=== PATIENT | female | born 1950 | race American Indian/Alaskan Native ===

== ENCOUNTER → 2017-09-01 | Outpatient (CLI) | payer MEDICARE ==
[~2017-09-01] MED LIST: ALBU90OI61 INH; ALPR.5 PO; ALPR.5CR; ASCO500 PO; BP MEDS; CARV25 PO; CRUTCH3 USE; CYCL10 PO; Chondroitin Su250 MG PO; D3 DOTS2000 UNIT PO; DOCU100 PO; FISH1000 PO; GLUC500 PO; IBUP400 PO; IRON325 MG PO; LIDO5TP TOP; MELO7.5 PO; Mobic15 MG; NAPR220; NAPR220 PO; OMEPRAZOLE MAGN20 MG PO; OXYACE5T PO; OXYC5; OXYC5 PO; PANT20 PO; POTASSIUM GLUC500 MG PO; RXHYDACE PO; Sucralfate1 GM PO; TOCO400 PO; TRAM50 PO; VITAMIN B125000 MCG PO; Vitamin C1000 M1 PO; WARF4 PO
[2017-09-01 13:26] LABS: Bilirubin, Urine Neg (Neg); Blood, Urine Neg (Neg); Glucose Qualitative, Urine Neg (Neg); Ketones, Urine Neg (Neg); Leukocyte Esterase, Urine 3+ (Neg); Nitrite, Urine Neg (Neg); Protein, Urine 1+ (Neg); Urobilinogen, Urine NORM (Normal); pH, Urine 6.5 (5.0-8.0)
[2017-09-01 13:49] LABS: Appearance, Urine Clear (Clear); Bacteria Few /hpf; Color, Urine Yellow (P-Yellow); Red Blood Cells, Urine 0-2 /hpf (0-2); Squamous Epithelial Cells Rare /hpf (Few)
== END ==
LOC: LAB SHORT 11:00 → LAB 11:00
PROVIDERS: Orthopaedic Surgery
DX: Z01.812 Encounter for preprocedural laboratory examination (principal)
CPT/HCPCS: 81001

== ENCOUNTER 2017-09-17 13:39 | Inpatient (IN) | payer MEDICARE ==
[~2017-09-17] VITALS: Ht 152.4 cm; Wt 59.0 kg
[2017-09-23 04:39] LABS: BASOPHILS ABSOLUTE AUTO 0.01 K/mm3 (0.00-0.23); BASOPHILS PERCENT AUTO 0 % (0-2); EOSINOPHILS PERCENT AUTO 0 % (0-6); Hematocrit 25.6 % (33.0-51.0); Hemoglobin 8.2 g/dL (11.5-16.0); IMMATURE GRAN ABSOLUTE AUTO 0.04 K/mm3 (0.00-0.10); IMMATURE GRAN PERCENT AUTO 0 % (0-1); LYMPHOCYTES ABSOLUTE AUTO 0.58 K/mm3 (0.84-5.20); LYMPHOCYTES PERCENT AUTO 6 % (21-46); MONOCYTES PERCENT AUTO 13 % (4-13); Mean Corpuscular HGB 25.8 pg (26.0-34.0); Mean Corpuscular Volume 81 fL (80-100); Mean Platelet Volume 9.3 fL (9.1-12.4); NEUTROPHILS ABSOLUTE AUTO 7.74 K/mm3 (1.96-9.15); NEUTROPHILS PERCENT AUTO 81 % (41-73); Platelet Count 270 K/mm3 (150-400); RDW Coefficient Variation 20.8 % (11.7-14.2); RDW Standard Deviation 60.8 fL (35.1-46.3); Red Blood Cell Count 3.18 M/mm3 (3.80-5.20); White Blood Cell Count 9.57 K/mm3 (4.00-11.30)
[2017-09-23 04:55] LABS: Anion Gap 10 mmol/L (6-16); Blood Urea Nitrogen 16 mg/dL (8-24); Bun/Creatinine Ratio 23.2 (12.0-20.0); CO2, Blood 23 mmol/L (21-32); Calcium, Blood 8.3 mg/dL (8.5-10.1); Chloride, Blood 104 mmol/L (98-108); Creatinine, Blood 0.69 mg/dL (0.40-1.00); Glomerular Filtration Rate >60 (60-); Glucose, Blood 128 mg/dL (70-99); Potassium, Blood 3.5 mmol/L (3.5-5.5); Sodium, Blood 137 mmol/L (136-145)
[2017-09-23] MEDS ORDERED: OXYC5 PO (13:06)
== END 2017-09-23 15:10 | disposition home or self-care (01) | DRG 483 ==
LOC: SURS 09-22 09:30 → PRE IP 09-22 11:00 → SURS 09-22 15:41
PROVIDERS: Orthopaedic Surgery
PROC: 0RRK0J6 Replacement of Left Shoulder Joint with Synthetic Substitute, Humeral Surface, Open Approach (ICD-10-PCS; principal; 2017-09-22 11:00)
DX: M19.012 Primary osteoarthritis, left shoulder (principal); I10 Essential (primary) hypertension; F41.9 Anxiety disorder, unspecified
CPT/HCPCS: 36415; 73030; 80048; 85025; 86850; 86900; 86901; 97110; 97162; 97165; 97530; 97535; C1776; G8978; G8979; G8980; G8987; G8988; G8989; J0171; J0690; J0735; J1885; J2250; J2405; J2765; J2795; J3010; J7120

== ENCOUNTER 2021-02-01 18:53 | Inpatient (IN) | payer OTHER ==
[~2021-02-01] VITALS: Ht 152.4 cm; Wt 49.9 kg
[2021-02-01] MEDS ORDERED: OMEP20ER (19:05)
[2021-02-01] MEDS ORDERED: ALPRAZOLAM0.5 M1 PO (19:05)
[2021-02-01] MEDS ORDERED: IBU800 M1 PO (19:05)
[2021-02-01 20:04] LABS: BASOPHILS ABSOLUTE AUTO 0.02 K/mm3 (0.00-0.23); BASOPHILS PERCENT AUTO 0 % (0-2); Hematocrit 32.8 % (33.0-51.0); LYMPHOCYTES ABSOLUTE AUTO 0.58 K/mm3 (0.84-5.20); LYMPHOCYTES PERCENT AUTO 3 % (21-46); MONOCYTES ABSOLUTE AUTO 1.23 K/mm3 (0.16-1.47); MONOCYTES PERCENT AUTO 7 % (4-13); Mean Corpuscular Volume 89 fL (80-100); Mean Platelet Volume 9.8 fL (9.1-12.4); Platelet Count 308 K/mm3 (150-400); RDW Coefficient Variation 11.1 % (11.7-14.2); RDW Standard Deviation 36.1 fL (35.1-46.3); Red Blood Cell Count 3.68 M/mm3 (3.80-5.20); White Blood Cell Count 18.93 K/mm3 (4.00-11.30)
[2021-02-01 20:11] LABS: Alanine Aminotransfer (ALT/SGP 57 U/L (12-78); Albumin, Blood 2.9 g/dL (3.4-5.0); Albumin/Globulin Ratio 0.9 (0.8-1.8); Alk Phos 126 U/L (50-136); Anion Gap 18 mmol/L (6-16); Aspartate Aminotrans (AST/SGOT 76 U/L (12-37); Bilirubin, Total 1.1 mg/dL (0.1-1.0); Blood Urea Nitrogen 7 mg/dL (8-24); Bun/Creatinine Ratio 10.4 (12.0-20.0); CO2, Blood 21 mmol/L (21-32); Calcium, Blood 8.5 mg/dL (8.5-10.1); Chloride, Blood 69 mmol/L (98-108); Creatinine, Blood 0.67 mg/dL (0.40-1.00); Globulin, Blood 3.4 g/dL (2.2-4.0); Glomerular Filtration Rate >60 (60-); Glucose, Blood 179 mg/dL (70-99); Potassium, Blood 3.4 mmol/L (3.5-5.5); Sodium, Blood 108 mmol/L (136-145); Total Protein, Blood 6.3 g/dL (6.4-8.2)
[2021-02-01 20:38] LABS: EOSINOPHILS PERCENT AUTO 2 % (0-6); IMMATURE GRAN ABSOLUTE AUTO 0.23 K/mm3 (0.00-0.10); IMMATURE GRAN PERCENT AUTO 1 % (0-1); Mean Corpuscular HGB 35.3 pg (26.0-34.0); Mean Corpuscular HGB Conc 39.6 g/dL (31.5-36.5); NEUTROPHILS ABSOLUTE AUTO 16.57 K/mm3 (1.96-9.15); NEUTROPHILS PERCENT AUTO 88 % (41-73)
[2021-02-01 21:02] LABS: Magnesium, Blood 1.4 mg/dL (1.6-2.4); Phosphorus, Blood 1.5 mg/dL (2.5-4.9)
[2021-02-02 06:26] LABS: Magnesium, Blood 2.3 mg/dL (1.6-2.4)
[2021-02-02 06:40] LABS: Anion Gap 16 mmol/L (6-16); Blood Urea Nitrogen 4 mg/dL (8-24); CO2, Blood 19 mmol/L (21-32); Calcium, Blood 7.9 mg/dL (8.5-10.1); Chloride, Blood 83 mmol/L (98-108); Creatinine, Blood 0.66 mg/dL (0.40-1.00); Glomerular Filtration Rate >60 (60-); Glucose, Blood 126 mg/dL (70-99); Potassium, Blood 2.6 mmol/L (3.5-5.5); Sodium, Blood 118 mmol/L (136-145)
--- NOTE | 2021-02-02 17:56 | NUR ---
SHIFT SUMMARY PT HAS BEEN RESTING IN BED, NAPPING OFF AND ON. PT HAS VOICED NO C/O PAIN, C/O DISCOMFORT WITH IV INFUSION. PT WAS EDUCATED ON MEDICATION AND EXPECTED SENSATION DURING INFUSION. THIS RN SLOWED INFUSION AND PROVIDED DISTRACTION TO REDUCE THE DISCOMFORT. VSS, NO ACUTE CHANGES TO CURRENT CONDITION.
[2021-02-02 23:11] LABS: Influenza A, PCR NEGATIVE (NEGATIVE); Influenza B, PCR NEGATIVE (NEGATIVE); Resp Syncytial Virus, PCR NEGATIVE (NEGATIVE); SARS-Cov-2 (COVID-19) PCR, MMC NEGATIVE (NEGATIVE)
[2021-02-03 04:54] LABS: Anion Gap 8 mmol/L (6-16); Blood Urea Nitrogen 6 mg/dL (8-24); Bun/Creatinine Ratio 10.6 (12.0-20.0); CO2, Blood 24 mmol/L (21-32); Calcium, Blood 8.6 mg/dL (8.5-10.1); Chloride, Blood 95 mmol/L (98-108); Creatinine, Blood 0.57 mg/dL (0.40-1.00); Glomerular Filtration Rate >60 (60-); Glucose, Blood 104 mg/dL (70-99); Magnesium, Blood 2.1 mg/dL (1.6-2.4); Phosphorus, Blood 1.8 mg/dL (2.5-4.9); Potassium, Blood 3.6 mmol/L (3.5-5.5); Sodium, Blood 127 mmol/L (136-145)
--- NOTE | 2021-02-03 06:17 | NUR ---
SHIFT SUMMARY PT ALERT AND ORIENTED X4. C/O SNEEZING AND CONGESTION. PT SWABBED, COVID, RSV, FLU NEGATIVE. SODIUM IMPROVED FROM 118 YESTERDAY AM TO 127 TODAY AM. HR 60 SR, BP STABLE. ON RA SATS OVER 95%, LUNG SOUNDS CLEAR. AMBULATING TO BEDSIDE COMMODE WITH X1 SBA. CIWA-. IN BED SLEEPING WITH CALL ALARM AT SIDE. WILL CONTINUE TO MONITOR UNTLI REPORT GIVEN.
--- NOTE | 2021-02-03 17:44 | NUR ---
SHIFT SUMMARY PT HAS BEEN RESTING AND NAPPING IN BED FOR MOST OF THE DAY. PT HAS DENIED ANY C/O PAIN/DISCOMFORT. PT HAS MADE STATEMENTS ABOUT LOOKING FORWARD TO STARTING PT/OT AND HAS HOPE FOR IMPROVING CURRENT LIMITATIONS. WHEN ASKED ABOUT LIVING ARRANGEMENT, PT WOULD DEFLECT AND AVOID THE CONVERSATION. VSS, NO CHANGES TO CURRENT CONDITION.
[2021-02-04 04:12] LABS: Anion Gap 9 mmol/L (6-16); Blood Urea Nitrogen 7 mg/dL (8-24); Bun/Creatinine Ratio 12.8 (12.0-20.0); CO2, Blood 22 mmol/L (21-32); Calcium, Blood 8.5 mg/dL (8.5-10.1); Chloride, Blood 98 mmol/L (98-108); Creatinine, Blood 0.55 mg/dL (0.40-1.00); Glomerular Filtration Rate >60 (60-); Glucose, Blood 136 mg/dL (70-99); Potassium, Blood 3.2 mmol/L (3.5-5.5); Sodium, Blood 129 mmol/L (136-145)
--- NOTE | 2021-02-04 06:34 | NUR ---
SHIFT SUMMARY PT ALERT AND ORIENTED X4. FREQUENTLY PROFESSOR OF LANGUAGES LIGHT FOR BATHROOM. PLEASANT AND COOPERATIVE. LUNG SOUNDS CLEAR, SATS OVER 99% ON RA. BP STABLE. LEFT ARM BRUISE AND RIGHT A/C IV REMOVED. IN BED WATCHING TV WITH CALL ALARM AT SIDE. WILL CONTINUE TO MONITOR UNTIL REPORT GIVEN.
[2021-02-04 06:52] LABS: Osmolality, Serum 261 mos/KG (275-300)
[2021-02-04] MEDS ORDERED: Acetaminophen325 M1 PO (09:31)
--- NOTE | 2021-02-04 12:25 | NUR ---
DISCHARGE: PT HAS BEEN PROVIDED WITH DC PAPERWORK AND INSTRUCTIONS, PT DENIES QUESTIONS. IV ACCESS DC'd WNL. PT ASSISTED TO WAITING RIDE VIA W/C.
== END 2021-02-04 12:13 | disposition home health service (06) | DRG 392 ==
LOC: ER 18:53 → PCU 18:54
PROVIDERS: Emergency Medicine; Internal Medicine; ADMIT Internal Medicine
DX: A08.4 Viral intestinal infection, unspecified (principal); E87.1 Hypo-osmolality and hyponatremia; Z20.822 Contact with and (suspected) exposure to COVID-19; K29.20 Alcoholic gastritis without bleeding; F10.20 Alcohol dependence, uncomplicated; T39.315A Adverse effect of propionic acid derivatives, initial encounter; I10 Essential (primary) hypertension; E87.8 Other disorders of electrolyte and fluid balance, not elsewhere classified; E83.39 Other disorders of phosphorus metabolism; G89.29 Other chronic pain; E83.42 Hypomagnesemia; E87.6 Hypokalemia; D72.829 Elevated white blood cell count, unspecified; Z88.2 Allergy status to sulfonamides; Z88.8 Allergy status to other drugs, medicaments and biological substances; Z79.899 Other long term (current) drug therapy; Z79.1 Long term (current) use of non-steroidal anti-inflammatories (NSAID)
CPT/HCPCS: 0241U; 36415; 80048; 80053; 82947; 83690; 83735; 83930; 83935; 84100; 84295; 84300; 85025; 93005; 93010; 96365; 96375; 97161; 97530; 99285-25; A9270; J1650; J2405; J3411; J3475; J3480; J7030; J7042; J7060

== ENCOUNTER 2021-03-17 22:14 | Inpatient (IN) | payer OTHER ==
[~2021-03-17] VITALS: Ht 152.4 cm; Wt 44.7 kg
[~2021-03-17 22:14] MED LIST changes: +ALPRAZOLAM0.5 M1 PO; +Acetaminophen325 M1 PO; +IBU800 M1 PO; +OMEP20ER
[2021-03-17 22:47] LABS: BASOPHILS ABSOLUTE AUTO 0.03 K/mm3 (0.00-0.23); BASOPHILS PERCENT AUTO 0 % (0-2); EOSINOPHILS PERCENT AUTO 0 % (0-6); Hematocrit 26.4 % (33.0-51.0); IMMATURE GRAN ABSOLUTE AUTO 0.06 K/mm3 (0.00-0.10); IMMATURE GRAN PERCENT AUTO 1 % (0-1); LYMPHOCYTES ABSOLUTE AUTO 1.13 K/mm3 (0.84-5.20); LYMPHOCYTES PERCENT AUTO 9 % (21-46); MONOCYTES ABSOLUTE AUTO 0.87 K/mm3 (0.16-1.47); MONOCYTES PERCENT AUTO 7 % (4-13); Mean Corpuscular Volume 92 fL (80-100); Mean Platelet Volume 10.6 fL (9.1-12.4); NEUTROPHILS ABSOLUTE AUTO 10.15 K/mm3 (1.96-9.15); NEUTROPHILS PERCENT AUTO 83 % (41-73); Platelet Count 413 K/mm3 (150-400); RDW Coefficient Variation 15.7 % (11.7-14.2); RDW Standard Deviation 50.7 fL (35.1-46.3); Red Blood Cell Count 2.88 M/mm3 (3.80-5.20); White Blood Cell Count 12.24 K/mm3 (4.00-11.30)
[2021-03-17 22:48] LABS: Hemoglobin 10.2 g/dL (11.5-16.0); Mean Corpuscular HGB 35.4 pg (26.0-34.0)
[2021-03-17 23:08] LABS: CPK Creatine Kinase 248 U/L (26-193); Creatine Kinase MB 16.4 ng/mL (0.0-3.6); Creatine Kinase MB Index 6.6 (0.0-4.0); Ethanol (Alcohol), Blood, Med <3 mg/dL
[2021-03-17 23:13] LABS: Alanine Aminotransfer (ALT/SGP 130 U/L (12-78); Albumin, Blood 2.3 g/dL (3.4-5.0); Albumin/Globulin Ratio 0.7 (0.8-1.8); Alk Phos 169 U/L (50-136); Anion Gap 16 mmol/L (6-16); Aspartate Aminotrans (AST/SGOT 87 U/L (12-37); Bilirubin, Total 3.4 mg/dL (0.1-1.0); Blood Urea Nitrogen 13 mg/dL (8-24); Bun/Creatinine Ratio 9.3 (12.0-20.0); CO2, Blood 16 mmol/L (21-32); Calcium, Blood 8.5 mg/dL (8.5-10.1); Chloride, Blood 111 mmol/L (98-108); Globulin, Blood 3.2 g/dL (2.2-4.0); Glomerular Filtration Rate 37 (60-); Glucose, Blood 153 mg/dL (70-99); Potassium, Blood 1.8 mmol/L (3.5-5.5); Sodium, Blood 143 mmol/L (136-145); Total Protein, Blood 5.5 g/dL (6.4-8.2)
[2021-03-17 23:19] LABS: International Normalized Ratio 2.25; Prothrombin Time Results 22.4 Sec (9.7-11.5)
[2021-03-17 23:24] LABS: Mean Corpuscular HGB Conc 37.3 g/dL (31.5-36.5)
[2021-03-17 23:41] LABS: Source, Urine Clean Catch
[2021-03-17 23:45] LABS: Blood, Urine 5+ (Neg); Glucose Qualitative, Urine Neg (Neg); Ketones, Urine Neg (Neg); Leukocyte Esterase, Urine 1+ (Neg); Nitrite, Urine Neg (Neg); Protein, Urine 2+ (Neg); Specific Gravity, Urine 1.015 (1.003-1.022); Urobilinogen, Urine 1+ (Normal)
[2021-03-17 23:52] LABS: Appearance, Urine Hazy (Clear); Bilirubin, Urine 2+ (Neg); Color, Urine Amber (P-Yellow)
[2021-03-17 23:53] LABS: Amorphous Light (0-Heavy); Bacteria Few /hpf; Granular Casts 0-2 /lpf (0); Red Blood Cells, Urine TNTC /hpf (0-2); Squamous Epithelial Cells Rare /hpf (Few); White Blood Cells, Urine 0-2 /hpf (0-5)
[2021-03-17 23:56] LABS: U Amphetamine Screen Not Detected; U Barbituate Screen Not Detected; U Benzodiazapine Screen Not Detected; U Buprenorphine Screen Not Detected; U Cannabinoids Screen Not Detected; U Cocaine Screen Not Detected; U Methadone Screen Not Detected; U Methamphetamine Screen Not Detected; U Opiates Screen Not Detected; U Oxycodone Screen Not Detected; U Phencyclidine Screen Not Detected; U Propoxyphene Screen Not Detected
[2021-03-18 00:27] LABS: Influenza A, PCR NEGATIVE (NEGATIVE); Influenza B, PCR NEGATIVE (NEGATIVE); Resp Syncytial Virus, PCR NEGATIVE (NEGATIVE); SARS-Cov-2 (COVID-19) PCR, MMC NEGATIVE (NEGATIVE)
--- NOTE | 2021-03-18 06:17 | NUR ---
CARE ASSUMPTION: THIS RN RECEIVED REPORT FROM ED RN. PATIENT TRANSPORTED BY GURNEY AND WAS SLID FROM ED GURNEY TO PCU BED. PATIENT SLURRED OF SPEECH, COMPLAINED WE WERE "POKING" HER AND EVERYTHING WE DID HURT. KCL RUNNING TO RAC IV. PATIENT STATES R IV SITE WAS BEGINNING TO HURT. RAC IV SITE FLUSHED WELL, INFUSING, NO REDNESS OR SIGNS OF INFILTRATION NOTED. SECOND IV SITE WAS STARTED BACKUP. PATIENT STATES SHE IS COLD AND WAS BROUGHT BLANKETS FROM WARMER.
--- NOTE | 2021-03-18 06:21 | NUR ---
SHIFT SUMMARY: PATIENT'S VS WNL, DENIES PAIN TO ABDOMEN, DENIES CHEST PAIN, SOB, AND N/V. PATIENT COMPLAINS MOVING HURTS BUT WANTS TO WALK TO TOILET. BED ALARM IS ON PATIENT CONFUSED AND UNSTABLE ON FEET. PATIENT ASKED THIS RN TO "CARRY [ME] TO THE TOILET" ON TWO OCCASIONS. THIS RN REMINDED HER SHE IS UNSTABLE ON HER FEET AND IT IS UNSAFE FOR THIS RN TO CARRY PATIENTS TO THE TOILET. PATIENT TOLD THIS RN OF ALL THE TIMES SHE HAS FALLEN AND HOW SHE "FALLS A LOT" DURING 0400 VS. POTASSIUM WAS 1.9 UPON ADMITTANCE AND LACTIC HAS TRENDED DOWN FROM 4.0 TO 2.4. PATIENT'S SISTER SPOKE WITH MANAGER ENVIRONMENTAL AND PLANS TO FLY FROM [place] TO [place] THIS AM, RENT A CAR, AND PREPARE PATIENT'S HOME FOR DISCHARGE. SISTER WAS EDUCATED ON VISITOR POLICY. SISTER VERBALIZED UNDERSTANDING AND STATED SHE IS CONCERNED FOR HER SISTER'S SAFTEY AND PRIORITY IN COMING IS TO "GET THE HOUSE READY." SHE WILL CALL FOR AN UPDATE. PATIENT RESTING IN BED WITH CALL LIGHT IN REACH. WILL CONTINUE TO MONITOR AND REPORT TO ONCOMING RN.
--- NOTE | 2021-03-18 08:12 | NUR ---
Pt is oriented x3, but has been saying very random comments which indicates she is still confused. Pt had NPO orders, I contacted MD to see if I could do BSS and advance diet. Pt passes BSS and breakfast was ordered. VSS on RA.
[2021-03-18 11:21] LABS: BASOPHILS ABSOLUTE AUTO 0.03 K/mm3 (0.00-0.23); BASOPHILS PERCENT AUTO 0 % (0-2); EOSINOPHILS ABSOLUTE AUTO 0.02 K/mm3 (0.00-0.68); EOSINOPHILS PERCENT AUTO 0 % (0-6); Hematocrit 24.9 % (33.0-51.0); Hemoglobin 9.3 g/dL (11.5-16.0); IMMATURE GRAN ABSOLUTE AUTO 0.04 K/mm3 (0.00-0.10); IMMATURE GRAN PERCENT AUTO 0 % (0-1); LYMPHOCYTES ABSOLUTE AUTO 1.31 K/mm3 (0.84-5.20); LYMPHOCYTES PERCENT AUTO 13 % (21-46); MONOCYTES ABSOLUTE AUTO 0.67 K/mm3 (0.16-1.47); MONOCYTES PERCENT AUTO 7 % (4-13); Mean Corpuscular HGB 34.8 pg (26.0-34.0); Mean Corpuscular HGB Conc 37.3 g/dL (31.5-36.5); Mean Corpuscular Volume 93 fL (80-100); Mean Platelet Volume 10.9 fL (9.1-12.4); NEUTROPHILS ABSOLUTE AUTO 8.25 K/mm3 (1.96-9.15); NEUTROPHILS PERCENT AUTO 80 % (41-73); Platelet Count 395 K/mm3 (150-400); RDW Coefficient Variation 15.9 % (11.7-14.2); RDW Standard Deviation 51.8 fL (35.1-46.3); Red Blood Cell Count 2.67 M/mm3 (3.80-5.20); White Blood Cell Count 10.32 K/mm3 (4.00-11.30)
[2021-03-18 12:29] LABS: Albumin, Blood 2.6 g/dL (3.4-5.0); Albumin/Globulin Ratio 0.9 (0.8-1.8); Bilirubin, Total 4.1 mg/dL (0.1-1.0); Calcium, Blood 8.5 mg/dL (8.5-10.1); Creatinine, Blood 1.1 mg/dL (0.40-1.00); Globulin, Blood 2.8 g/dL (2.2-4.0); Potassium, Blood 2.1 mmol/L (3.5-5.5); Total Protein, Blood 5.4 g/dL (6.4-8.2)
--- NOTE | 2021-03-18 15:51 | NUR ---
Pts daughters updated over the phone.
--- NOTE | 2021-03-18 15:51 | NUR ---
Shift note: Pt is alert and oriented to self, time and place, disoriented to situation. Pts thought process and some of her comments are indicating she is still a bit confused. I have noticed an improvement of mentation and orientation throughout the day. PO lactulose given per orders. K critically low 2.1, K+ replaced IV. Currently infusing the second bag. It is a slow infusion with each bag running over 2 hrs. Pt will get a total of 4 bags and 80meq. Lab order in place for tonight after infusions. Mg was also given 2G. Pt up to BSC multiple times today. Multiple BMs liquid/loose. Pt passed BSS this AM and has been eating a little bit at each meal. Pt was asking for snacks in afternoon. Pt denies pain in her abdomen, abdomen is pretty soft nontender, mildly distended. Scabs seen on bottom and legs. Tele: NSR. VSS on RA. Fluids given per orders 1.5L NS. 2 PIVs, both flushing well. Pt denies drinking since January before admission to hospital for fall.
--- NOTE | 2021-03-18 18:27 | NUR ---
Pt reported trouble swallowing some of the solid food with dinner, changed diet to [facility] soft. Pt did ok with thin liquids. Pt wears dentures and does have them in place. SURVEYOR HELPER order placed.
[2021-03-18 20:13] LABS: Bun/Creatinine Ratio 9.1 (12.0-20.0); Calcium, Blood 8.5 mg/dL (8.5-10.1); Creatinine, Blood 0.99 mg/dL (0.40-1.00); Potassium, Blood 2.5 mmol/L (3.5-5.5)
[2021-03-19 05:37] LABS: BASOPHILS ABSOLUTE AUTO 0.02 K/mm3 (0.00-0.23); BASOPHILS PERCENT AUTO 0 % (0-2); EOSINOPHILS ABSOLUTE AUTO 0.04 K/mm3 (0.00-0.68); EOSINOPHILS PERCENT AUTO 1 % (0-6); Hematocrit 25.1 % (33.0-51.0); Hemoglobin 9.2 g/dL (11.5-16.0); IMMATURE GRAN ABSOLUTE AUTO 0.04 K/mm3 (0.00-0.10); IMMATURE GRAN PERCENT AUTO 1 % (0-1); LYMPHOCYTES ABSOLUTE AUTO 1.37 K/mm3 (0.84-5.20); LYMPHOCYTES PERCENT AUTO 16 % (21-46); MONOCYTES ABSOLUTE AUTO 0.75 K/mm3 (0.16-1.47); MONOCYTES PERCENT AUTO 9 % (4-13); Mean Corpuscular HGB 35.2 pg (26.0-34.0); Mean Corpuscular HGB Conc 36.7 g/dL (31.5-36.5); Mean Corpuscular Volume 96 fL (80-100); NEUTROPHILS ABSOLUTE AUTO 6.22 K/mm3 (1.96-9.15); NEUTROPHILS PERCENT AUTO 74 % (41-73); Platelet Count 386 K/mm3 (150-400); RDW Coefficient Variation 17.1 % (11.7-14.2); Red Blood Cell Count 2.61 M/mm3 (3.80-5.20); White Blood Cell Count 8.44 K/mm3 (4.00-11.30)
[2021-03-19 05:53] LABS: Anion Gap 8 mmol/L (6-16); Blood Urea Nitrogen 8 mg/dL (8-24); Bun/Creatinine Ratio 8.7 (12.0-20.0); CO2, Blood 18 mmol/L (21-32); Calcium, Blood 8.6 mg/dL (8.5-10.1); Chloride, Blood 126 mmol/L (98-108); Creatinine, Blood 0.92 mg/dL (0.40-1.00); Glomerular Filtration Rate >60 (60-); Glucose, Blood 119 mg/dL (70-99); Potassium, Blood 3.2 mmol/L (3.5-5.5); Sodium, Blood 152 mmol/L (136-145)
--- NOTE | 2021-03-19 05:57 | NUR ---
shift summary pt rested well through the night. alert and oriented x2. bed alarm on. cooperative with plan of care. sats >95% on room air. tele reads nsr. sba to bsc, voiding and having small bm's. lactulose scheduled. potassium improving significantly. ammonia seems to be improving based on mentation. vss. no c/o pain. call light within reach, bed in lowest position. will continue to monitor.
--- NOTE | 2021-03-19 07:51 | NUR ---
PO POTASSIUM GIVEN IN APPLESAUCE DUE TO LARGE SIZE AND TROUBLE SWALLOWING. DR. Bernstein CALLED AND SAID TO WAIT FOR MG LEVEL TO COME BACK BEFORE GIVING IV MAG.
--- NOTE | 2021-03-19 07:59 | NUR ---
Pt daughter Sondra is wanting an update from the doctor. I notifed Dr. Bernstein of this.
--- NOTE | 2021-03-19 08:35 | NUR ---
Mg came back high, did not give per Dr. Villa verbal order at bedside. Dr. Villa also wanted an additional 20meq IV of potassium, order placed.
[2021-03-19] MEDS ORDERED: LACT10SY PO (12:29)
[2021-03-19] MEDS ORDERED: CEROVITE PO (12:35)
[2021-03-19] MEDS ORDERED: POTCHL20ER PO (12:36)
--- NOTE | 2021-03-19 13:04 | NUR ---
Pt is alert and oriented, but will repeat multiple things and make comments that are not related to topic. Not sure if pt has baseline cognitive decline, but pt is forgetful and thought process is a bit off. Tele: NSR 70s. Pt has had multiple BMs today, 0900 lactulose given, but 1300 dose held due to >4 BMs. K replaced PO 40meQ and IV 20meq. VSS on RA. Pt worked with PT, ambulated in [place]opez with FWW. Pt sister (Sondra) was wanting an update and had a few questions for MD, notified Dr. Bernstein and was told she would call family member. Pt also worked with [employer] TECHNICAL OFFICER, mechanical soft diet as well as thins ok. Pills in applesauce.
[2021-03-19 13:27] LABS: Anion Gap 10 mmol/L (6-16); Blood Urea Nitrogen 7 mg/dL (8-24); Bun/Creatinine Ratio 7.9 (12.0-20.0); CO2, Blood 14 mmol/L (21-32); Calcium, Blood 8.5 mg/dL (8.5-10.1); Chloride, Blood 122 mmol/L (98-108); Creatinine, Blood 0.89 mg/dL (0.40-1.00); Glomerular Filtration Rate >60 (60-); Glucose, Blood 155 mg/dL (70-99); Potassium, Blood 3.8 mmol/L (3.5-5.5); Sodium, Blood 146 mmol/L (136-145)
--- NOTE | 2021-03-19 13:38 | NUR ---
Attempted to call Sondra, pt sister several times to see what time she can pick her up, goes straight to voicemail. I will continue to try and reach her.
--- NOTE | 2021-03-19 13:45 | NUR ---
Met pt, sitting in a chair and watching T.V. Pt. reports to be doing fine but she expressed fear of dying and cried for the brother whom she said few months ago. Encouraged pt. and gave spirital suppot and prayers.
--- NOTE | 2021-03-19 13:46 | NUR ---
Spoke with pt sister Sondra, she will be able to pick her up at 1500. PT has already completed eval on pt and OT is pretty busy today and likely would not be able to get eval in. Pt has home health orders for PT/OT and help in home. Pt being d/c home with Home health and her sister will be at her house until Thursday.
--- NOTE | 2021-03-19 15:31 | NUR ---
Received referral from nurse rn wound care (Salma Coronel) on 03/19/2021. Patient is to discharge 03/19/2021 with orders for home health and elected [facility]. Patient is known to agency/greeting card writer due to having recently been on service with [facility] from through 03/07/2021. At that time patient was on service for PT, OT, and SN services. Gathered all supporting documentation for referral (face sheet, face to face, med list, H&P, and most recent PT assessment) and sent to [facility] for review. No further interventions required. Louisa Butler Referral Liaison
[2021-03-20] MEDS ORDERED: GABA300 PO (08:52)
== END 2021-03-19 15:20 | disposition home health service (06) | DRG 433 ==
LOC: ER 22:14 → PCU 03-18 00:25
PROVIDERS: Emergency Medicine; Family Medicine; ADMIT Internal Medicine
DX: K70.40 Alcoholic hepatic failure without coma (principal); E87.2 Acidosis; N17.9 Acute kidney failure, unspecified; D68.9 Coagulation defect, unspecified; Z20.822 Contact with and (suspected) exposure to COVID-19; E87.6 Hypokalemia; R19.7 Diarrhea, unspecified; K70.30 Alcoholic cirrhosis of liver without ascites; E86.0 Dehydration; I10 Essential (primary) hypertension; Z71.41 Alcohol abuse counseling and surveillance of alcoholic; Z88.2 Allergy status to sulfonamides; Z90.49 Acquired absence of other specified parts of digestive tract; Z90.710 Acquired absence of both cervix and uterus; Z79.899 Other long term (current) drug therapy; Z90.89 Acquired absence of other organs; Z98.890 Other specified postprocedural states
CPT/HCPCS: 0241U; 36415; 70450; 71045; 72125; 80048; 80053; 81001; 82140; 82550; 82553; 83605; 83735; 84484; 85025; 85610; 87086; 92610; 93005; 93010; 96365; 97116; 97162; 97530; 99285-25; A9270; G0480; J2405; J3475; J3480; J7030; J7050; P9046

== ENCOUNTER 2021-04-03 08:29 | Inpatient (IN) | payer OTHER ==
[~2021-04-03] VITALS: Ht 152.4 cm; Wt 46.9 kg
[~2021-04-03 08:29] MED LIST changes: +CEROVITE PO; +Enulose10 GM/15 M PO; +GABA300 PO; -OMEP20ER; +POTCHL20ER PO; +Prilosec Otc20 MG PO
[2021-04-03] MEDS ORDERED: FUROSEMIDE20 MG PO (08:48)
[2021-04-03 09:02] LABS: BASOPHILS ABSOLUTE AUTO 0.06 K/mm3 (0.00-0.23); BASOPHILS PERCENT AUTO 0 % (0-2); EOSINOPHILS PERCENT AUTO 0 % (0-6); Hematocrit 29.8 % (33.0-51.0); Hemoglobin 9.3 g/dL (11.5-16.0); IMMATURE GRAN ABSOLUTE AUTO 0.17 K/mm3 (0.00-0.10); IMMATURE GRAN PERCENT AUTO 1 % (0-1); LYMPHOCYTES ABSOLUTE AUTO 0.81 K/mm3 (0.84-5.20); LYMPHOCYTES PERCENT AUTO 4 % (21-46); MONOCYTES ABSOLUTE AUTO 1.28 K/mm3 (0.16-1.47); MONOCYTES PERCENT AUTO 6 % (4-13); Mean Corpuscular HGB 35.9 pg (26.0-34.0); Mean Corpuscular HGB Conc 31.2 g/dL (31.5-36.5); Mean Corpuscular Volume 115 fL (80-100); Mean Platelet Volume 10.3 fL (9.1-12.4); NEUTROPHILS ABSOLUTE AUTO 19.78 K/mm3 (1.96-9.15); NEUTROPHILS PERCENT AUTO 89 % (41-73); Platelet Count 459 K/mm3 (150-400); RDW Coefficient Variation 20.4 % (11.7-14.2); RDW Standard Deviation 84.4 fL (35.1-46.3); Red Blood Cell Count 2.59 M/mm3 (3.80-5.20)
[2021-04-03 09:11] LABS: PCO2 Arterial 12.7 mmHg (35-45); PO2 Arterial 129 mmHg (80-100); pH Blood Arterial 7.13 (7.35-7.45)
[2021-04-03 09:24] LABS: Albumin, Blood 2.5 g/dL (3.4-5.0); Albumin/Globulin Ratio 0.6 (0.8-1.8); Bilirubin, Total 1.2 mg/dL (0.1-1.0); Bun/Creatinine Ratio 10.7 (12.0-20.0); Calcium, Blood 9.3 mg/dL (8.5-10.1); Creatinine, Blood 1.68 mg/dL (0.40-1.00); Globulin, Blood 4.1 g/dL (2.2-4.0); Potassium, Blood 4.2 mmol/L (3.5-5.5); Total Protein, Blood 6.6 g/dL (6.4-8.2)
[2021-04-03 10:35] LABS: Source, Urine Foley catheter
[2021-04-03 10:46] LABS: Creatine Kinase MB 15.6 ng/mL (0.0-3.6); Creatine Kinase MB Index 3.6 (0.0-4.0)
[2021-04-03 11:10] LABS: Appearance, Urine Bloody (Clear); Bilirubin, Urine Neg (Neg); Blood, Urine 5+ (Neg); Color, Urine Red (P-Yellow); Glucose Qualitative, Urine Neg (Neg); Ketones, Urine 2+ (Neg); Leukocyte Esterase, Urine 1+ (Neg); Nitrite, Urine Neg (Neg); Protein, Urine 3+ (Neg); Urobilinogen, Urine NORM (Normal)
[2021-04-03 11:26] LABS: Red Blood Cells, Urine TNTC /hpf (0-2)
[2021-04-03 11:27] LABS: Bacteria Not Seen /hpf; Squamous Epithelial Cells Not Seen /hpf (Few)
[2021-04-03 12:18] LABS: International Normalized Ratio 1.81; Prothrombin Time Results 18.3 Sec (9.7-11.5)
[2021-04-03 14:14] LABS: Influenza A, PCR NEGATIVE (NEGATIVE); Influenza B, PCR NEGATIVE (NEGATIVE); Resp Syncytial Virus, PCR NEGATIVE (NEGATIVE); SARS-Cov-2 (COVID-19) PCR, MMC NEGATIVE (NEGATIVE)
[2021-04-03 15:44] LABS: Salicylate <1.7 mg/dL (2.8-20.0)
[2021-04-03 15:58] LABS: Acetaminophen, Random 2.8 ug/mL (10.0-30.0)
[2021-04-03 16:05] LABS: Bun/Creatinine Ratio 11.2 (12.0-20.0); Calcium, Blood 8.5 mg/dL (8.5-10.1); Creatinine, Blood 1.43 mg/dL (0.40-1.00)
[2021-04-03 16:09] LABS: Alanine Aminotransfer (ALT/SGP 48 U/L (12-78); Albumin, Blood 1.9 g/dL (3.4-5.0); Albumin/Globulin Ratio 0.6 (0.8-1.8); Alk Phos 104 U/L (50-136); Anion Gap 19 mmol/L (6-16); Aspartate Aminotrans (AST/SGOT 66 U/L (12-37); Beta-hydroxybutyrate 28.5 mg/dL (0.2-2.8); Bilirubin, Total 0.9 mg/dL (0.1-1.0); Blood Urea Nitrogen 16 mg/dL (8-24); Bun/Creatinine Ratio 11.3 (12.0-20.0); CO2, Blood 9 mmol/L (21-32); Calcium, Blood 8.2 mg/dL (8.5-10.1); Chloride, Blood 126 mmol/L (98-108); Creatinine, Blood 1.42 mg/dL (0.40-1.00); Globulin, Blood 3.3 g/dL (2.2-4.0); Glomerular Filtration Rate 37 (60-); Glucose, Blood 157 mg/dL (70-99); Sodium, Blood 154 mmol/L (136-145); Total Protein, Blood 5.2 g/dL (6.4-8.2)
[2021-04-03 16:50] LABS: U Amphetamine Screen Not Detected; U Barbituate Screen Not Detected; U Benzodiazapine Screen Not Detected; U Buprenorphine Screen Not Detected; U Cannabinoids Screen Not Detected; U Cocaine Screen Not Detected; U Methadone Screen Not Detected; U Methamphetamine Screen Not Detected; U Opiates Screen Not Detected; U Oxycodone Screen Not Detected; U Phencyclidine Screen Not Detected; U Propoxyphene Screen Not Detected
[2021-04-03 16:51] LABS: Adenovirus F 40/41 Not Detected (NOT DETECT); Astrovirus Not Detected (NOT DETECT); Campylobacter Sp Not Detected (NOT DETECT); Cryptosporidium Not Detected (NOT DETECT); Cyclospora Cayetanensis Not Detected (NOT DETECT); E. Coli O157 Not Detected (NOT DETECT); Entamoeba Histolytica Not Detected (NOT DETECT); Enteroaggregative E. coli-EAEC Not Detected (NOT DETECT); Enteropathogenic E. coli-EPEC Not Detected (NOT DETECT); Enterotoxigenic E. coli-ETEC Not Detected (NOT DETECT); Giardia Lamblia Not Detected (NOT DETECT); Norovirus GI/GII Not Detected (NOT DETECT); Plesiomonas Shigelloides Not Detected (NOT DETECT); Rotavirus A Not Detected (NOT DETECT); Salmonella Sp Not Detected (NOT DETECT); Sapovirus Not Detected (NOT DETECT); Shiga Toxin-prod E. coli-STEC Not Detected (NOT DETECT); Shigella/Enteroin E. coli-EIEC Not Detected (NOT DETECT); Vibrio Cholerae Not Detected (NOT DETECT); Vibrio Sp Not Detected (NOT DETECT); Yersinia Enterocolitica Not Detected (NOT DETECT)
[2021-04-03 17:10] LABS: Osmolality, Serum 326 mos/KG (275-300)
--- NOTE | 2021-04-03 18:37 | NUR ---
SUMMARY PT ON ROOM AIR, VITALS STABLE AT THIS TIME. SEE LABS FOR RESULTS. NEURO: PT VERY LETHARGIC, STRONGER COMMANDS ON LEFT SIDE SIDE COMPARED TO RT, PUPILS EQUAL AND REACTIVE. PT HAS ALL BRAIN STEM REFLEXES IN PLACE, INTERMITTENT MOANS AND HAS SAID 'I HEAR YOU' TO RN DURING ASSESSMENT. RESP: ON RM AIR, RR 14, LUNGS CLEAR THROUGHOUT, DIMINISHED IN BASES. NO CRACKLES PRESENT AT THIS TIME. CV: NSR HR IN THE 90'S. +2 PITTING EDEMA AND PANCHO BLE. STRONG PULSES IN RADIAL, FAINT BLE. POTASSIUM LAB 3, AWARE. GI: FMS IN PLACE, TWO LACTULOSE ENEMAS COMPLETED TODAY. MERRITT PASTE OUTPUT. FMS BAG CHANGED. HEMORRHOIDS AROUND ANUS. SKIN: DRY, POOR TURGOR, DRY MEMBRANES. LEFT FLANK PURPLE BRUISE, SMALL LEFT KNEE WOUND ON OLD INCISION SITE, BLE SCRATCHES/EXCORIATION, RIGHT ELBOW TRAUMATIC PRESSURE WOUND- CLOVER IN : MCCORMACK IN PLACE, BLOODY OUTPUT. 150ML TOTAL OUTPUT FROM [id number], DR. AGRAWAL AWARE. 150MEQ BICARB DRIP AT 100, D5 AT 75, LR BOLUS AND POTASSIUM REPLACEMENT STARTED. PLACE. HEEL AND SACRUM FOAM IN PLACE.
--- NOTE | 2021-04-03 20:00 | NUR ---
ASSUMPTION OF CARE RECEIVED REPORT AT 1900. PT ATTEMPTS TO OPEN EYES TO NAME, BUT LETHARGIC AND SOMNOLENT. MOANS OUT OFTEN, ESPECIALLY WHEN TOUCHED. UNABLE TO FOLLOW COMMANDS AND NO PURPOSEFUL MOVEMENT. RESISTANT TO REPOSITIONING. ON ROOM AIR, SPO2 >92%, LUNGS ARE CLEAR AND DIMINISHED. SHE IS TAKING DEEP BREATHS AND SNORING ON EXPIRATION. HR IS SR, RATE 80-90'S, ECG ON MONITOR SHOWS INTERFERANCE. BP STABLE. EDEMA 2+ PITTING TO BLE. MCCORMACK PATENT, DRAINING REDDENED URINE WITH SEDIMENT. RECTAL TUBE PATENT, DRAINING LIQUID YELLOW/BROWN STOOL. SKIN IS OVERALL C/D/I, SEE ASSESSMENT FOR FULL DETAIL. BICARB GTT AT 100ML/HR, DEXTROSE 5% AT 75ML/HR, LR BOLUS RUNNING. ORDERS REVIEWED, WILL TREAT PRESCRIBED.
[2021-04-03 22:29] LABS: Bun/Creatinine Ratio 12.4 (12.0-20.0); Calcium, Blood 8.2 mg/dL (8.5-10.1); Creatinine, Blood 1.13 mg/dL (0.40-1.00); Potassium, Blood 3.4 mmol/L (3.5-5.5)
[2021-04-04 03:15] LABS: PCO2 Arterial 21 mmHg (35-45); PO2 Arterial 76.5 mmHg (80-100); pH Blood Arterial 7.49 (7.35-7.45)
[2021-04-04 04:17] LABS: BASOPHILS ABSOLUTE AUTO 0.04 K/mm3 (0.00-0.23); BASOPHILS PERCENT AUTO 0 % (0-2); EOSINOPHILS ABSOLUTE AUTO 0.01 K/mm3 (0.00-0.68); EOSINOPHILS PERCENT AUTO 0 % (0-6); Hematocrit 22.3 % (33.0-51.0); Hemoglobin 7.3 g/dL (11.5-16.0); IMMATURE GRAN PERCENT AUTO 1 % (0-1); LYMPHOCYTES ABSOLUTE AUTO 1.65 K/mm3 (0.84-5.20); LYMPHOCYTES PERCENT AUTO 11 % (21-46); MONOCYTES ABSOLUTE AUTO 0.88 K/mm3 (0.16-1.47); MONOCYTES PERCENT AUTO 6 % (4-13); Mean Corpuscular HGB 35.1 pg (26.0-34.0); Mean Corpuscular HGB Conc 32.7 g/dL (31.5-36.5); Mean Platelet Volume 10.2 fL (9.1-12.4); NEUTROPHILS ABSOLUTE AUTO 12.69 K/mm3 (1.96-9.15); NEUTROPHILS PERCENT AUTO 83 % (41-73); Platelet Count 348 K/mm3 (150-400); RDW Coefficient Variation 19.9 % (11.7-14.2); RDW Standard Deviation 75.8 fL (35.1-46.3); Red Blood Cell Count 2.08 M/mm3 (3.80-5.20); White Blood Cell Count 15.37 K/mm3 (4.00-11.30)
[2021-04-04 04:18] LABS: Mean Corpuscular Volume 107 fL (80-100)
[2021-04-04 04:41] LABS: Albumin, Blood 2.2 g/dL (3.4-5.0); Albumin/Globulin Ratio 0.8 (0.8-1.8); Bilirubin, Total 0.7 mg/dL (0.1-1.0); Bun/Creatinine Ratio 13.1 (12.0-20.0); Calcium, Blood 7.7 mg/dL (8.5-10.1); Creatinine, Blood 0.99 mg/dL (0.40-1.00); Free Thyroxine 0.71 ng/dL (0.70-1.60); Globulin, Blood 2.7 g/dL (2.2-4.0); Magnesium, Blood 1.5 mg/dL (1.6-2.4); Potassium, Blood 2.8 mmol/L (3.5-5.5); Thyroid Stimulating Hormone 4.66 uIU/mL (0.360-4.800); Total Protein, Blood 4.9 g/dL (6.4-8.2)
--- NOTE | 2021-04-04 05:04 | NUR ---
CALL TO DR. AGRAWAL RE: AM LABS AND BREATHING PATTERN. PT CONTINUES TO HAVE EXPIRATORY SNORE AND EXPIRATORY WHEEZE, 2L O2 PLACED AND SPO2 100%. ORDERS GIVEN TO DISCONTINUE SODIUM BICARB GTT. 2G MAG SULFATE IVPB AND 40 MEQ POTASSIUM IVBP REPLACEMENTS ORDERED ALSO. MENTATION CONTINUES UNCHANGED: SHE MOANS OUT AND ATTEMPTS TO OPEN EYES TO VOICE, OTHERWISE NO PURPOSEFUL MOVEMENTS OR RESPONSES.
--- NOTE | 2021-04-04 06:19 | NUR ---
PT HAD NO ACUTE EVENTS THIS SHIFT. SHE CONTINUES TO MOAN OUT FREQUENTLY, RESPONDS TO PAIN, AND ATTEMPTS TO OPEN EYES TO NAME; OTHERWISE, NO PURPOSEFUL MOVEMENTS, UNABLE TO FOLLOW COMMANDS. AFEBRILE. 2L O2 REMAINS IN PLACE, SPO2 100%, LUNGS HAVE EXPIRATORY WHEEZE AND SNORE, RR IN 20'S. HR REMAINS SR IN 80-90'S; HOWEVER, DIFFICULT TO ASSESS RHYTHM D/T MONITOR INTERFERENCE. BP STABLE. RECTAL TUBE PATENT, BAG CHANGED, 1000ML YELLOW/LIQUID STOOL OUT. LACTULOSE ENEMA COMPLETED AT 0000. AMMONIA LEVEL 64. RECTAL TUBE WAS REMOVED AND REPLACED D/T LEAKING, 35ML H2O INSTILLED INTO BALLOON. MCCORMACK PATENT, DRAINING RED/YELLOW URINE WITH SEDIMENT, 625ML OUT. BICARB GTT DISCONTINUED AND D5 REMAINS AT 75ML/HR. MOST RECENT CBG OF 155 COVERED WITH 3 UNITS INSULIN. SHE IS RECEIVING 2G MAG SULFATE IVPB, AND 40MEQ KCL IVBP REPLACEMENT THIS AM. WILL REPORT TO ONCOMING SHIFT WHEN AVAILABLE.
--- NOTE | 2021-04-04 08:44 | NUR ---
TOOK OVER CARE OF PT AT 0700, D5 DRIP RUNNING AT 75, POTASSIUM REPLACMENT IN PRROGRESS, INTERMITTENT MOANS FROM PATIENT, SLIGHT IMPROVMENT OF MENTATION, VITALS STABLE, PT ON 2L NC.
[2021-04-04 11:43] LABS: Percent Saturation 42.5 % (15.0-50.0)
[2021-04-04 12:37] LABS: Potassium, Blood 3.3 mmol/L (3.5-5.5)
[2021-04-04 12:59] LABS: Anion Gap 14 mmol/L (6-16); Blood Urea Nitrogen 11 mg/dL (8-24); Bun/Creatinine Ratio 12.3 (12.0-20.0); CO2, Blood 18 mmol/L (21-32); Chloride, Blood 120 mmol/L (98-108); Creatinine, Blood 0.89 mg/dL (0.40-1.00); Glomerular Filtration Rate >60 (60-); Glucose, Blood 86 mg/dL (70-99); Potassium, Blood 3.3 mmol/L (3.5-5.5); Sodium, Blood 152 mmol/L (136-145)
--- NOTE | 2021-04-04 14:00 | NUR ---
SPUTUM CULTURE SENT
[2021-04-04 16:47] LABS: Hematocrit 22.5 % (33.0-51.0); Hemoglobin 7.7 g/dL (11.5-16.0)
--- NOTE | 2021-04-04 17:16 | NUR ---
PT SISTER ARIES IS TAKING NOTES IN A DIAL MAKER, NOTING STAFF SHE HAS TALKED TO, VITALS AND OTHER PT INFORMATION.
--- NOTE | 2021-04-04 18:32 | NUR ---
SUMMARY NEURO: PT RELUCTANTLY & WEAKLY FOLLOWS COMMANDS. PT CONTINUES TO MOAN WITH SOME WORDS WHEN ENCOURAGED. PT STILL VERY LETHARGIC AND MINIMALLY INTERACTIVE BUT ABLE TO OPEN EYES AND TRACK WITH THEM. PUPILS EQUAL AND REACTIVE. CARDIAC: NSR, HR IN THE 90'S. LUNGS: DIMINISHED BASES, INTERMITTENT WHEEZES, NO OXYGEN AT THIS TIME BUT PT NEEDED BAGGED DURING NG PLACEMENT DUE TO DESATURATIONS INTO THE 40'S. GI: 16F NG PLACED INTO THE RT NARE, TF RUNNING AT 20, GOAL OF 30. ABD ULTRASOUND COMPLETED TODAY. FMS IN PLACE WITH 100ML WATERY OUTPUT. LACTULOSE ENEMAS UPDATED TO ORAL. : MCCORMACK IN PLACE, SEE I/O CHARTING FOR OUTPUT. URINE IS BRICK RED COLOR.
[2021-04-04 20:23] LABS: Magnesium, Blood 2.1 mg/dL (1.6-2.4)
[2021-04-04 20:24] LABS: Anion Gap 11 mmol/L (6-16); Blood Urea Nitrogen 9 mg/dL (8-24); Bun/Creatinine Ratio 10.7 (12.0-20.0); CO2, Blood 19 mmol/L (21-32); Calcium, Blood 7.6 mg/dL (8.5-10.1); Chloride, Blood 119 mmol/L (98-108); Creatinine, Blood 0.84 mg/dL (0.40-1.00); Glomerular Filtration Rate >60 (60-); Glucose, Blood 150 mg/dL (70-99); Phosphorus, Blood 2.4 mg/dL (2.5-4.9); Potassium, Blood 3.7 mmol/L (3.5-5.5); Sodium, Blood 149 mmol/L (136-145)
[2021-04-05 04:38] LABS: BASOPHILS ABSOLUTE AUTO 0.04 K/mm3 (0.00-0.23); BASOPHILS PERCENT AUTO 0 % (0-2); EOSINOPHILS ABSOLUTE AUTO 0.01 K/mm3 (0.00-0.68); EOSINOPHILS PERCENT AUTO 0 % (0-6); Hematocrit 20.6 % (33.0-51.0); Hemoglobin 6.9 g/dL (11.5-16.0); IMMATURE GRAN ABSOLUTE AUTO 0.04 K/mm3 (0.00-0.10); IMMATURE GRAN PERCENT AUTO 0 % (0-1); LYMPHOCYTES ABSOLUTE AUTO 1.67 K/mm3 (0.84-5.20); LYMPHOCYTES PERCENT AUTO 14 % (21-46); MONOCYTES ABSOLUTE AUTO 0.85 K/mm3 (0.16-1.47); MONOCYTES PERCENT AUTO 7 % (4-13); Mean Corpuscular HGB 36.1 pg (26.0-34.0); Mean Corpuscular HGB Conc 33.5 g/dL (31.5-36.5); Mean Corpuscular Volume 108 fL (80-100); Mean Platelet Volume 10.5 fL (9.1-12.4); NEUTROPHILS PERCENT AUTO 78 % (41-73); Platelet Count 310 K/mm3 (150-400); RDW Coefficient Variation 20.4 % (11.7-14.2); RDW Standard Deviation 77.2 fL (35.1-46.3); Red Blood Cell Count 1.91 M/mm3 (3.80-5.20); White Blood Cell Count 12.01 K/mm3 (4.00-11.30)
[2021-04-05 04:57] LABS: International Normalized Ratio 1.89
[2021-04-05 04:58] LABS: Alanine Aminotransfer (ALT/SGP 39 U/L (12-78); Albumin, Blood 1.8 g/dL (3.4-5.0); Albumin/Globulin Ratio 0.6 (0.8-1.8); Alk Phos 91 U/L (50-136); Anion Gap 15 mmol/L (6-16); Aspartate Aminotrans (AST/SGOT 41 U/L (12-37); Bilirubin, Total 0.6 mg/dL (0.1-1.0); Blood Urea Nitrogen 8 mg/dL (8-24); Bun/Creatinine Ratio 11.4 (12.0-20.0); CO2, Blood 17 mmol/L (21-32); CPK Creatine Kinase 171 U/L (26-193); Calcium, Blood 7.4 mg/dL (8.5-10.1); Chloride, Blood 118 mmol/L (98-108); Globulin, Blood 3.2 g/dL (2.2-4.0); Glomerular Filtration Rate >60 (60-); Glucose, Blood 150 mg/dL (70-99); Phosphorus, Blood 2.9 mg/dL (2.5-4.9); Potassium, Blood 3.4 mmol/L (3.5-5.5); Sodium, Blood 150 mmol/L (136-145)
--- NOTE | 2021-04-05 07:48 | NUR ---
TOOK OVER CARE OF PT AT 0700. PT VITALS STABLE AT THIS TIME, NO CHANGE IN NEURO STATUS PER REPORT. PT ON ROOM AIR.
[2021-04-05 14:38] LABS: Hematocrit 30.1 % (33.0-51.0); Hemoglobin 9.9 g/dL (11.5-16.0)
[2021-04-05 14:56] LABS: Alanine Aminotransfer (ALT/SGP 50 U/L (12-78); Albumin/Globulin Ratio 0.6 (0.8-1.8); Alk Phos 107 U/L (50-136); Anion Gap 15 mmol/L (6-16); Aspartate Aminotrans (AST/SGOT 42 U/L (12-37); Bilirubin, Total 1.3 mg/dL (0.1-1.0); Blood Urea Nitrogen 7 mg/dL (8-24); Bun/Creatinine Ratio 9.9 (12.0-20.0); CO2, Blood 17 mmol/L (21-32); Calcium, Blood 7.8 mg/dL (8.5-10.1); Chloride, Blood 118 mmol/L (98-108); Creatinine, Blood 0.71 mg/dL (0.40-1.00); Globulin, Blood 3.5 g/dL (2.2-4.0); Glomerular Filtration Rate >60 (60-); Glucose, Blood 161 mg/dL (70-99); Potassium, Blood 3.4 mmol/L (3.5-5.5); Sodium, Blood 150 mmol/L (136-145); Total Protein, Blood 5.5 g/dL (6.4-8.2)
--- NOTE | 2021-04-05 17:27 | NUR ---
SUMMARY NEURO: PT MAKING SHORT CONVERSATIONS WITH STAFF. PT CONTINUES TO MOAN INTERMITTENTLY. ABLE TO MORE EASILY FOLLOW COMMANDS ON ALL EXTREMETIES. REORIENTED BUT UNABLE TO REMEMBER WHEN ASKED LATER. PT WAS STRONG ENOUGH TO PULL OUT NG LAST NIGHT. PUPILS EQUAL AND REACTIVE. CARDIAC: NSR, HR IN THE 90'S. EDEMATOUS +1/+2 THROUGHOUT LUNGS: DIMINISHED BASES, INTERMITTENT WHEEZES, NO OXYGEN AT THIS TIME GI: NG PLACED INTO THE RT NARE, TF RUNNING AT 20, GOAL OF 30. WAS STOPPED FOR FOUR HOURS DUE TO EMESIS THAT OCCURED AFTER ORAL POTASSIUM ADMINISTRATION. FMS IN PLACE WITH 900ML WATERY OUTPUT. LACTULOSE : MCCORMACK IN PLACE, 300ML OUT THIS SHIFT. URINE IS TEA COLORED.
--- NOTE | 2021-04-05 19:30 | NUR ---
ASSUMPTION OF CARE: PT IS ALERT, ABLE TO COMMUNICATE NEEDS. SOFT WRIST RESTRAINTS IN PLACE. NG TUBE W/TUBE FEEDINGS INFUSING PER MD ORDER. PT IS ON ROOM AIR, VSS. NO S/S OF ACUTE DISTRESS NOTED AT TIME OF ASSUMPTION OF CARE.
[2021-04-06 03:46] LABS: BASOPHILS ABSOLUTE AUTO 0.03 K/mm3 (0.00-0.23); BASOPHILS PERCENT AUTO 0 % (0-2); EOSINOPHILS PERCENT AUTO 0 % (0-6); Hematocrit 25.6 % (33.0-51.0); Hemoglobin 8.8 g/dL (11.5-16.0); IMMATURE GRAN ABSOLUTE AUTO 0.06 K/mm3 (0.00-0.10); IMMATURE GRAN PERCENT AUTO 0 % (0-1); LYMPHOCYTES ABSOLUTE AUTO 1.38 K/mm3 (0.84-5.20); LYMPHOCYTES PERCENT AUTO 8 % (21-46); MONOCYTES ABSOLUTE AUTO 0.91 K/mm3 (0.16-1.47); MONOCYTES PERCENT AUTO 5 % (4-13); Mean Corpuscular HGB 34.8 pg (26.0-34.0); Mean Corpuscular HGB Conc 34.4 g/dL (31.5-36.5); Mean Platelet Volume 10.7 fL (9.1-12.4); NEUTROPHILS ABSOLUTE AUTO 14.99 K/mm3 (1.96-9.15); NEUTROPHILS PERCENT AUTO 86 % (41-73); NRBC ABSOLUTE 0.03 K/mm3 (0.00-0.02); NRBC Auto 0.2 /100 WBC (0.0-0.2); Platelet Count 278 K/mm3 (150-400); RDW Coefficient Variation 20.8 % (11.7-14.2); RDW Standard Deviation 73.3 fL (35.1-46.3); Red Blood Cell Count 2.53 M/mm3 (3.80-5.20); White Blood Cell Count 17.37 K/mm3 (4.00-11.30)
[2021-04-06 03:47] LABS: Mean Corpuscular Volume 101 fL (80-100)
[2021-04-06 04:01] LABS: Anion Gap 13 mmol/L (6-16); Blood Urea Nitrogen 6 mg/dL (8-24); Bun/Creatinine Ratio 8.8 (12.0-20.0); CO2, Blood 16 mmol/L (21-32); Calcium, Blood 7.7 mg/dL (8.5-10.1); Chloride, Blood 119 mmol/L (98-108); Creatinine, Blood 0.68 mg/dL (0.40-1.00); Glomerular Filtration Rate >60 (60-); Glucose, Blood 130 mg/dL (70-99); Magnesium, Blood 1.6 mg/dL (1.6-2.4); Phosphorus, Blood 2.3 mg/dL (2.5-4.9); Potassium, Blood 3.6 mmol/L (3.5-5.5); Sodium, Blood 148 mmol/L (136-145)
--- NOTE | 2021-04-06 08:55 | NUR ---
CARE OF PT ASSUMED AT 0700. PT AWAKE IN BED CALLING OUT. SOME OF SPEECH GARBLED THIS AM BUT CLEARED AROUND 0900. PT ORIENTED X3, BUT FORGETFUL; WAS LIGHTLY PULLING AT THIS AM DESPITE RESTRAINT. AFTER MEDS GIVEN PER NG PT C/O SIGNIFICANT NAUSEA. ZOFRAN GIVEN. TEMP 100.0. PT C/O GENERALIZED PAIN, MORE TO LEGS AND BACK. PT MOANS OFTEN.
--- NOTE | 2021-04-06 10:35 | NUR ---
LARGE LEAK CLEANED FROM RECTAL TUBE, RECTAL TUBE INTACT. PT GIVEN FULL BEDBATH. PT ABLE TO CONVERSE BUT IS STILL CONFUSED AND FORGETFUL. DR ARIAS AT BEDSIDE, FULL UPDATE GIVEN. LOVENOX TO BE HELD. SCD'S ON PT. ASADO ORDERED.
--- NOTE | 2021-04-06 12:28 | NUR ---
PT MORE AWAKE. RECTAL TUBE LEAKING, PT CLEANED, LINEN CHANGED. 10CC RESIDUAL. PT STATES NAUSEA BETTER. PT CRIES OUT WITH TURN AND CLEANING.
--- NOTE | 2021-04-06 14:03 | NUR ---
PT'S SISTER AND NEPHEW AT BEDSIDE VISITING. PT C/O NAUSEA, DUSKY SKIN. ZOFRAN GIVEN. TUBE FEEDS PLACED ON HOLD PER DR ARIAS. ZOFRAN DOSE INCREASED TO 8MG.
--- NOTE | 2021-04-06 15:35 | NUR ---
PT HAD EMESIS WITH SOLID MATTER. 2 RN'S ASSISTED WITH SUCTIONING. PT'S NG HAD BEEN PLACED TO LIS PRIOR TO EMESIS. POSSIBLE ASPIRATION. CRACKLES TO BILAT LOBES, SATS FELL TO MID 80'S. O2 PLACED AT 2L, SATS NOW >95%. DR ARIAS NOTIFIED AND AT BEDSIDE TO EXAM PT. KUB AND CHEST XRAY ORDERED. NGT CONT'S TO LIS PER DR ARIAS.
--- NOTE | 2021-04-06 18:26 | NUR ---
PT SLEEPING RESTFULLY. AWAKENS TO VOICE. CRIES OUT WITH EVERY TURN. SATS 94% ON 2L VIA N/C. RESTRAINTS REMOVED AT 1300 TODAY. PT HAS SOME CONFUSION BUT HAS NOT PULLED ON ANY LINES OR NGT. ABLE TO HOLD APPROPRIATE CONVERSATION. VSS. LOW GRADE TEMP TODAY. ONE TIME DOSE LASIX GIVEN. ZOSYN STARTED.
--- NOTE | 2021-04-06 19:29 | NUR ---
ASSUMPTION OF CARE PT IS ALERT AND ORIENTED. NG TUBE TO ILWS. VS WNL AT THIS TIME. NO S/S OF ACUTE DISTRESS NOTED AT TIME OF ASSUMPTION OF CARE.
[2021-04-07 04:05] LABS: BASOPHILS ABSOLUTE AUTO 0.03 K/mm3 (0.00-0.23); BASOPHILS PERCENT AUTO 0 % (0-2); EOSINOPHILS PERCENT AUTO 0 % (0-6); Hematocrit 25.5 % (33.0-51.0); Hemoglobin 8.6 g/dL (11.5-16.0); IMMATURE GRAN ABSOLUTE AUTO 0.17 K/mm3 (0.00-0.10); IMMATURE GRAN PERCENT AUTO 1 % (0-1); LYMPHOCYTES ABSOLUTE AUTO 0.91 K/mm3 (0.84-5.20); LYMPHOCYTES PERCENT AUTO 4 % (21-46); MONOCYTES ABSOLUTE AUTO 0.99 K/mm3 (0.16-1.47); MONOCYTES PERCENT AUTO 4 % (4-13); Mean Corpuscular HGB 35.1 pg (26.0-34.0); Mean Corpuscular HGB Conc 33.7 g/dL (31.5-36.5); Mean Corpuscular Volume 104 fL (80-100); Mean Platelet Volume 11.2 fL (9.1-12.4); NEUTROPHILS ABSOLUTE AUTO 23.89 K/mm3 (1.96-9.15); NEUTROPHILS PERCENT AUTO 92 % (41-73); Platelet Count 263 K/mm3 (150-400); RDW Coefficient Variation 20.5 % (11.7-14.2); RDW Standard Deviation 75.5 fL (35.1-46.3); Red Blood Cell Count 2.45 M/mm3 (3.80-5.20); White Blood Cell Count 25.99 K/mm3 (4.00-11.30)
[2021-04-07 04:19] LABS: International Normalized Ratio 1.61; Prothrombin Time Results 16.4 Sec (9.7-11.5)
[2021-04-07 04:22] LABS: Alanine Aminotransfer (ALT/SGP 34 U/L (12-78); Albumin, Blood 1.6 g/dL (3.4-5.0); Albumin/Globulin Ratio 0.5 (0.8-1.8); Alk Phos 81 U/L (50-136); Anion Gap 12 mmol/L (6-16); Aspartate Aminotrans (AST/SGOT 30 U/L (12-37); Bilirubin, Total 1.1 mg/dL (0.1-1.0); Blood Urea Nitrogen 6 mg/dL (8-24); Bun/Creatinine Ratio 7.2 (12.0-20.0); CO2, Blood 19 mmol/L (21-32); Calcium, Blood 7.7 mg/dL (8.5-10.1); Chloride, Blood 124 mmol/L (98-108); Creatinine, Blood 0.83 mg/dL (0.40-1.00); Globulin, Blood 3.4 g/dL (2.2-4.0); Glomerular Filtration Rate >60 (60-); Glucose, Blood 108 mg/dL (70-99); Magnesium, Blood 1.7 mg/dL (1.6-2.4); Phosphorus, Blood 4.1 mg/dL (2.5-4.9); Potassium, Blood 2.7 mmol/L (3.5-5.5); Sodium, Blood 155 mmol/L (136-145)
--- NOTE | 2021-04-07 10:31 | NUR ---
CARE OF PT ASSUMED AT 0700. PT AWAKE IN BED, ORIENTED TO SELF AND PLACE. PT ACTIVELY HALLUCINATING. PT CALM AND COOPERATIVE AND ABLE TO ANSWER QUESTIONS APPROPRIATELY. PT FORGETFUL AND PULLS AT LINES AND NG WHEN UNRESTRAINED. SOFT BILAT WRIST RESTRAINTS ON. O2 NEEDS INCREASED FROM THIS AM. PT NOW REQUIRES AIRVO 40L/60%. SATS 100%, WILL TITRATE DOWN TOLERATED. PT C/O NAUSEA ON ASSESSMENT. ZOFRAN GIVEN. NG REMAINS TO LIS, WITH BILE TO CANISTER. NGT MEDS HELD. DR ARIAS AWARE. DR ARIAS AT BEDSIDE THIS AM, FULL UPDATE GIVEN. CT OF ABD ORDERED AND COMPLETED. PT RECEIVING 60MEQ K+ INFUSION. WILL RECHECK K+ AFTER INFUSION PER DR ARIAS. CRACKLES T/O, MORE DYSPNEA TODAY COMPARED TO YESTERDAY, MILDLY LABORED BREATHING. PT CONT TO HAVE LIQUID STOOLS, RECTAL TUBE INTACT BUT LEAKS PT CONTINUES TO BEAR DOWN.
[2021-04-07 13:30] LABS: Potassium, Blood 3.6 mmol/L (3.5-5.5)
--- NOTE | 2021-04-07 14:28 | NUR ---
PT GIVEN FULL BEDBATH. SATS DROPPED TO HIGH 70'S WITH TURN, AIRVO AT 40L/65%. SATS NOW BETWEEN 90-98% DEPENDING IF PT IS TALKING. OCC DROPS LESS THAN 90 WHEN SPEAKING. PT'S SISTER ARIES NOW AT BEDSIDE. NO OTHER CHANGES.
--- NOTE | 2021-04-07 17:23 | NUR ---
U/O 300CC, DR ARIAS NOTIFIED. D5W INCREASED TO 100CC/HR, LASIX TO BE GIVEN. PT IS ACTIVELY HALLUCINATING, STATES SHE SHE RATS IN THE ROOM AND CAN NOT BE CONVINCED THAT THEY ARE NOT THERE. PT CALM.
--- NOTE | 2021-04-07 23:31 | NUR ---
Patient is oriented to place and self, but contantly confused regarding the situation, CAM positive for ICU delirium. On airvo 40L/60% at start of shift, frequent desaturation events. O2 titrated up to 70 then 80% as needed; RT notified, flow increased to 50L. Desaturation events still occuring, O2 dropping to high 70's- 80's frequently in paola ansence of activity. Airvo increased to 90%. Pt's RR in the mid 40's. Dr. Mcnulty notified; ABG ordered.
[2021-04-07 23:36] LABS: PCO2 Arterial 24.8 mmHg (35-45); PO2 Arterial 64.4 mmHg (80-100); pH Blood Arterial 7.45 (7.35-7.45)
--- NOTE | 2021-04-08 03:20 | NUR ---
Patient complaing of discomfort at 0145. Turned, pad change, situated in bed. Desat to the mid 80's with turns, recovered to low 90's. Resting peacefully, airvo remained at 50L/90%. Spontaneous desat at 0225 to the 70's, then 60's. Airvo still in place, patient coherent and talking. Going into coughing spells, produing a think solis/brown sputum. Continues to desat, BVM ventilation initiated by this RN. Rapid response team initiated, arrived to unit at 0228. O2 sats slow to recover despite BVM. Decision made to intubate by Dr. Mims. 15 etomodate @ 0236, 80 ryan @ 0237. Pt sucessfully intubated on first attempt at [address] Mims; ETT size 7.5, 21cm at the gums. Equal chest rise and breath sounds. Mechanical ventilation initiated, chest xray obtained. Propofol gtt started for sedation.
[2021-04-08 04:03] LABS: BASOPHILS ABSOLUTE AUTO 0.03 K/mm3 (0.00-0.23); BASOPHILS PERCENT AUTO 0 % (0-2); EOSINOPHILS ABSOLUTE AUTO 0.03 K/mm3 (0.00-0.68); EOSINOPHILS PERCENT AUTO 0 % (0-6); Hematocrit 24.8 % (33.0-51.0); Hemoglobin 8.2 g/dL (11.5-16.0); IMMATURE GRAN ABSOLUTE AUTO 0.19 K/mm3 (0.00-0.10); IMMATURE GRAN PERCENT AUTO 1 % (0-1); LYMPHOCYTES ABSOLUTE AUTO 1.07 K/mm3 (0.84-5.20); LYMPHOCYTES PERCENT AUTO 4 % (21-46); MONOCYTES PERCENT AUTO 5 % (4-13); Mean Corpuscular HGB Conc 33.1 g/dL (31.5-36.5); Mean Corpuscular Volume 106 fL (80-100); Mean Platelet Volume 11.5 fL (9.1-12.4); NEUTROPHILS ABSOLUTE AUTO 25.66 K/mm3 (1.96-9.15); NEUTROPHILS PERCENT AUTO 91 % (41-73); Platelet Count 222 K/mm3 (150-400); RDW Coefficient Variation 19.9 % (11.7-14.2); RDW Standard Deviation 74.5 fL (35.1-46.3); Red Blood Cell Count 2.34 M/mm3 (3.80-5.20); White Blood Cell Count 28.28 K/mm3 (4.00-11.30)
[2021-04-08 04:29] LABS: Alanine Aminotransfer (ALT/SGP 32 U/L (12-78); Albumin, Blood 1.4 g/dL (3.4-5.0); Albumin/Globulin Ratio 0.4 (0.8-1.8); Alk Phos 79 U/L (50-136); Anion Gap 10 mmol/L (6-16); Aspartate Aminotrans (AST/SGOT 38 U/L (12-37); Bilirubin, Total 0.9 mg/dL (0.1-1.0); Blood Urea Nitrogen 8 mg/dL (8-24); Bun/Creatinine Ratio 9.9 (12.0-20.0); CO2, Blood 21 mmol/L (21-32); Calcium, Blood 7.5 mg/dL (8.5-10.1); Chloride, Blood 120 mmol/L (98-108); Creatinine, Blood 0.81 mg/dL (0.40-1.00); Globulin, Blood 3.4 g/dL (2.2-4.0); Glomerular Filtration Rate >60 (60-); Glucose, Blood 131 mg/dL (70-99); Magnesium, Blood 1.6 mg/dL (1.6-2.4); Phosphorus, Blood 3.3 mg/dL (2.5-4.9); Potassium, Blood 2.7 mmol/L (3.5-5.5); Sodium, Blood 151 mmol/L (136-145); Total Protein, Blood 4.8 g/dL (6.4-8.2)
[2021-04-08 06:01] LABS: PCO2 Arterial 30.3 mmHg (35-45); PO2 Arterial 185 mmHg (80-100); pH Blood Arterial 7.38 (7.35-7.45)
--- NOTE | 2021-04-08 07:27 | NUR ---
TOOK OVER CARE OF PT AT 0700, PT NEWLY VENTED LAST NIGHT VC R18 V350 P10 60%. PT'S SODIUM LABS ARE STILL ELEVATED, POTASSIUM REPLACEMENT IN PROGRESS, HEMAGLOBIN TRENDING DOWN.
--- NOTE | 2021-04-08 07:36 | NUR ---
ATTEMTPED TO UPDATE SISTER ARIES ON INTUBATION STATUS, SHE DID NOT ANSWER THE PHONE.
[2021-04-08 11:24] LABS: Hematocrit 24.3 % (33.0-51.0)
[2021-04-08 11:37] LABS: Potassium, Blood 3.7 mmol/L (3.5-5.5); Vancomycin, Trough 16.1 ug/mL (5.0-10.0)
[2021-04-08 12:33] LABS: PCO2 Arterial 28.1 mmHg (35-45); PO2 Arterial 78.2 mmHg (80-100); pH Blood Arterial 7.35 (7.35-7.45)
--- NOTE | 2021-04-08 13:42 | NUR ---
0930 PT WAS ABLE TO FOLLOW COMMANDS ON 10MCG OF PROPOFOL ON ALL EXTREMETIES. [address] PERDOMO NOTIFIED OF URINE OUTPUT OF APPROX. 15ML/HR
--- NOTE | 2021-04-08 16:22 | NUR ---
SUMMARY NEURO- PT ABLE TO FOLLOW COMMANDS ON ALL EXTREMETIES WITH 10 OF PROPOFOL RUNNING ON HE PUMP. PUPILS BRISK AND EQUAL. CARDIAC: BRADYCARDIC, HR IN THE 50'S, PT IS ON 6 OF LEVO DUE TO SDATION NEEDS. +2 EDEMA ON HANDS, PALE HANDS AND FEET, FAINT PULSES THROUGHOUT. LUNGS: POSITIVE SPUTUM CULTURE, DIMINISHED THROUGHOUT. 7.5 ETT, 21 AT THE LIP. VC P8 R14 V350 40% ETCO2 19. GI: VITAL HP RUNNING AT 3O ML/HR, GOAL OF 35. FREE WATER FLUSHES 300ML Q4 PROGRAMMED IN PUMP. 100 ML DARK GREEN WATERY OUTPU FROM FMS. : PINK/YUNIEL OUTPUT 190ML TOTAL AT THIS TIME. DR PERDOMO AWARE. 10ML FROM [id number].
[2021-04-08 16:56] LABS: Hematocrit 25.8 % (33.0-51.0); Hemoglobin 8.2 g/dL (11.5-16.0)
[2021-04-08 16:58] LABS: Campylobacter Sp Not Detected (NOT DETECT); Plesiomonas Shigelloides Not Detected (NOT DETECT); Salmonella Sp Not Detected (NOT DETECT)
[2021-04-08 16:59] LABS: Adenovirus F 40/41 Not Detected (NOT DETECT); Astrovirus Not Detected (NOT DETECT); Cryptosporidium Not Detected (NOT DETECT); Cyclospora Cayetanensis Not Detected (NOT DETECT); E. Coli O157 Not Detected (NOT DETECT); Entamoeba Histolytica Not Detected (NOT DETECT); Enteroaggregative E. coli-EAEC Not Detected (NOT DETECT); Enteropathogenic E. coli-EPEC Not Detected (NOT DETECT); Enterotoxigenic E. coli-ETEC Not Detected (NOT DETECT); Giardia Lamblia Not Detected (NOT DETECT); Norovirus GI/GII Not Detected (NOT DETECT); Rotavirus A Not Detected (NOT DETECT); Sapovirus Not Detected (NOT DETECT); Shiga Toxin-prod E. coli-STEC Not Detected (NOT DETECT); Shigella/Enteroin E. coli-EIEC Not Detected (NOT DETECT); Vibrio Cholerae Not Detected (NOT DETECT); Vibrio Sp Not Detected (NOT DETECT); Yersinia Enterocolitica Not Detected (NOT DETECT)
[2021-04-08 17:13] LABS: Bun/Creatinine Ratio 11.3 (12.0-20.0); Calcium, Blood 7.4 mg/dL (8.5-10.1); Creatinine, Blood 0.97 mg/dL (0.40-1.00)
[2021-04-09 03:40] LABS: BASOPHILS ABSOLUTE AUTO 0.03 K/mm3 (0.00-0.23); BASOPHILS PERCENT AUTO 0 % (0-2); EOSINOPHILS ABSOLUTE AUTO 0.75 K/mm3 (0.00-0.68); EOSINOPHILS PERCENT AUTO 3 % (0-6); Hematocrit 24.2 % (33.0-51.0); IMMATURE GRAN ABSOLUTE AUTO 0.31 K/mm3 (0.00-0.10); IMMATURE GRAN PERCENT AUTO 1 % (0-1); LYMPHOCYTES ABSOLUTE AUTO 1.79 K/mm3 (0.84-5.20); LYMPHOCYTES PERCENT AUTO 6 % (21-46); MONOCYTES ABSOLUTE AUTO 1.31 K/mm3 (0.16-1.47); MONOCYTES PERCENT AUTO 5 % (4-13); Mean Corpuscular HGB 34.8 pg (26.0-34.0); Mean Corpuscular HGB Conc 33.1 g/dL (31.5-36.5); Mean Corpuscular Volume 105 fL (80-100); Mean Platelet Volume 12.1 fL (9.1-12.4); NEUTROPHILS ABSOLUTE AUTO 24.08 K/mm3 (1.96-9.15); NEUTROPHILS PERCENT AUTO 85 % (41-73); NRBC ABSOLUTE 0.02 K/mm3 (0.00-0.02); NRBC Auto 0.1 /100 WBC (0.0-0.2); Platelet Count 256 K/mm3 (150-400); RDW Coefficient Variation 19.3 % (11.7-14.2); White Blood Cell Count 28.27 K/mm3 (4.00-11.30)
[2021-04-09 03:55] LABS: Albumin, Blood 1.3 g/dL (3.4-5.0); Anion Gap 11 mmol/L (6-16); Blood Urea Nitrogen 10 mg/dL (8-24); Bun/Creatinine Ratio 11.7 (12.0-20.0); CO2, Blood 17 mmol/L (21-32); Calcium, Blood 7.6 mg/dL (8.5-10.1); Chloride, Blood 115 mmol/L (98-108); Creatinine, Blood 0.85 mg/dL (0.40-1.00); Glomerular Filtration Rate >60 (60-); Glucose, Blood 105 mg/dL (70-99); Magnesium, Blood 1.7 mg/dL (1.6-2.4); Phosphorus, Blood 1.6 mg/dL (2.5-4.9); Potassium, Blood 3.6 mmol/L (3.5-5.5); Sodium, Blood 143 mmol/L (136-145)
--- NOTE | 2021-04-09 05:56 | NUR ---
SHIFT SUMMARY: PT REMAINS LIGHTLY SEDATED AND INTUBATED. ABLE TO FOLLOW COMMANDS. DOES GET ANXIOUS AT TIMES, SHAKES HEAD AND BITES ON ETT OCCASSIONALLY. LUNG SOUNDS CLEAR AND DIM, NO SECRETIONS WITH ETT SUCTIONING, VENT SETTING WAS UNCHANGED AT AC/VC MODE, 14L/350/40%. PT STILL ON LEVOPHED TO MAINTAIN MAP OF GREATER THAN 65. BP HAVE BEEN STABLE WITH LOW DOSE LEVOPHED. EDEMATOUS. PT HAS NGT WITH CONITNOUS TF WITH NO RESIDUALS. RECTAL TUBE AND MCCORMACK CATHETER REMAINS PATENT AND DRAINING TO GRAIVITY. PT HAS POOR OVERALL SKIN INTEGRITY, Q2H TURNS TO HELP MAINTAIN SKIN INTEG. PT DOES HAVE POOR VASCULAR ACCESS - ALREADY HAS 2 POWERGLIDES BILATERAL UPPER EXT. WILL NEED ANOTHER ACCESS DUE TO ELECTROLYTE REPLACEMENTS AND ANTIOBIOTICS DUE.
--- NOTE | 2021-04-09 07:51 | NUR ---
ASSUMED CARE PT. OPENS EYES TO VERBAL STIMULI, SHAKES HEAD YES AND NO TO QUESTIONS. PT. REMAINS ON VENT AT AC 14, TV350, 40%, PEEP 8. CURRENTLY ON PROPOFOL AT 20MCG/KG/MIN, LOW DOSE LEVO INFUSING THROUGH PG AT 2MCG/MIN. PG HAS POSITIVE BLOOD RETURN WITH FLUSH. PLANS FOR PICC LINE PLACEMENT. PT. CONTINUES WITH TF INFUSING AT 30ML/HR WITH Q4H 30ML FLUSH. LIQUID STOOL, RECTAL TUBE DRAINING TO GRAVITY. MCCORMACK IN PLACE, YUNIEL URINE IN MCCORMACK. PT. REMAINS EDEMATOUS T/O EXTREM.
--- NOTE | 2021-04-09 13:30 | NUR ---
PT FAMILY AT BEDSIDE, UPDATED ON PT CONDITION.
--- NOTE | 2021-04-09 13:41 | NUR ---
Pt. in bed prayed for her
--- NOTE | 2021-04-09 17:46 | NUR ---
SHIFT SUMMARY PT. REMAINS SEDATED AND INTUBATED. OCCASIONAL EPISODES OF DESATURATION AND COUGHING, THICK MERRITT SPUTUM SUCTIONED FROM ETT. PT. REMAINS ON LEVOPHED GTT CURRENTLY AT 2MCG/MIN. URINE OUTPUT REMAINS LOW, PLANS FOR LASIX IV THIS PM PER DR. PERDOMO. NO ACUTE CHANGES T/O SHIFT. REPORT TO ONCOMING RN.
--- NOTE | 2021-04-09 19:38 | NUR ---
ASSUMPTION OF CARE SEE ASSESSMENT FOR DETAILS; NO S/S OF ACUTE DISTRESS NOTED AT TIME OF ASSUMPTION OF CARE
[2021-04-10 04:27] LABS: BASOPHILS ABSOLUTE AUTO 0.04 K/mm3 (0.00-0.23); BASOPHILS PERCENT AUTO 0 % (0-2); EOSINOPHILS ABSOLUTE AUTO 0.75 K/mm3 (0.00-0.68); EOSINOPHILS PERCENT AUTO 4 % (0-6); Hematocrit 22.1 % (33.0-51.0); Hemoglobin 7.4 g/dL (11.5-16.0); IMMATURE GRAN ABSOLUTE AUTO 0.19 K/mm3 (0.00-0.10); IMMATURE GRAN PERCENT AUTO 1 % (0-1); LYMPHOCYTES PERCENT AUTO 10 % (21-46); MONOCYTES ABSOLUTE AUTO 0.89 K/mm3 (0.16-1.47); MONOCYTES PERCENT AUTO 5 % (4-13); Mean Corpuscular HGB 35.1 pg (26.0-34.0); Mean Corpuscular HGB Conc 33.5 g/dL (31.5-36.5); Mean Corpuscular Volume 105 fL (80-100); Mean Platelet Volume 12.4 fL (9.1-12.4); NEUTROPHILS ABSOLUTE AUTO 14.56 K/mm3 (1.96-9.15); NEUTROPHILS PERCENT AUTO 80 % (41-73); Platelet Count 219 K/mm3 (150-400); RDW Coefficient Variation 18.6 % (11.7-14.2); Red Blood Cell Count 2.11 M/mm3 (3.80-5.20); White Blood Cell Count 18.23 K/mm3 (4.00-11.30)
[2021-04-10 05:04] LABS: Albumin, Blood 1.2 g/dL (3.4-5.0); Anion Gap 11 mmol/L (6-16); Blood Urea Nitrogen 11 mg/dL (8-24); Bun/Creatinine Ratio 13.3 (12.0-20.0); CO2, Blood 17 mmol/L (21-32); Calcium, Blood 7.5 mg/dL (8.5-10.1); Chloride, Blood 116 mmol/L (98-108); Creatinine, Blood 0.83 mg/dL (0.40-1.00); Glomerular Filtration Rate >60 (60-); Glucose, Blood 117 mg/dL (70-99); Phosphorus, Blood 2.9 mg/dL (2.5-4.9); Potassium, Blood 3.1 mmol/L (3.5-5.5); Sodium, Blood 144 mmol/L (136-145)
--- NOTE | 2021-04-10 05:53 | NUR ---
SHIFT SUMMERY NO ACUTE CHANGES OVERNIGHT-SEE ASSESSMENTS
--- NOTE | 2021-04-10 09:08 | NUR ---
CARE OF PT ASSUMED AT 0700. PT SEDATED ON PROPOFOL AT 35MCG FOR MECH VENT. PT OPENS EYES BUT DOES NOT FOLLOW COMMANDS. LEVOPHED AT 1MCG TO KEEP MAP >65. BP STABLE W MAP >70; LEVOPHED PLACED ON STANDBY BUT MAP THEN DROPPED <65, LEVOPHED RESTARTED AT 1MCG. PROPOFOL DECREASED TO 30MCG. DR PERDOMO AT BEDSIDE THIS AM, FULL REPORT GIVEN.
--- NOTE | 2021-04-10 10:38 | NUR ---
PT PLACED ON SPONT W PS [address] PERDOMO. PT WIDE AWAKE FOR TURN, BREATHING 50'S. PT APPEARED UNCOMFORTABLE AND NODDED YES TO PAIN. FENT 50MCG GIVEN. PT THEN NEEDED MAURY PLACED BACK ON PREVIOUS SETTINGS AC/VC 14/350/35%/8 FOR DESATURATING.
[2021-04-10 11:28] LABS: Hematocrit 23.4 % (33.0-51.0); Hemoglobin 7.8 g/dL (11.5-16.0)
--- NOTE | 2021-04-10 19:15 | NUR ---
ASSUMPTION OF CARE: PT VSS ON CURRENT TREATMENTS AT THIS TIME. NO S/S OF ACUTE DISTRESS NOTED AT TIME OF ASSUMPTION OF CARE
[2021-04-11 04:13] LABS: BASOPHILS ABSOLUTE AUTO 0.03 K/mm3 (0.00-0.23); BASOPHILS PERCENT AUTO 0 % (0-2); EOSINOPHILS ABSOLUTE AUTO 0.75 K/mm3 (0.00-0.68); EOSINOPHILS PERCENT AUTO 4 % (0-6); Hematocrit 22.4 % (33.0-51.0); Hemoglobin 7.4 g/dL (11.5-16.0); IMMATURE GRAN ABSOLUTE AUTO 0.25 K/mm3 (0.00-0.10); IMMATURE GRAN PERCENT AUTO 1 % (0-1); LYMPHOCYTES ABSOLUTE AUTO 1.61 K/mm3 (0.84-5.20); LYMPHOCYTES PERCENT AUTO 9 % (21-46); MONOCYTES ABSOLUTE AUTO 0.92 K/mm3 (0.16-1.47); MONOCYTES PERCENT AUTO 5 % (4-13); Mean Corpuscular HGB 35.2 pg (26.0-34.0); Mean Corpuscular Volume 107 fL (80-100); Mean Platelet Volume 12.4 fL (9.1-12.4); NEUTROPHILS ABSOLUTE AUTO 14.17 K/mm3 (1.96-9.15); NEUTROPHILS PERCENT AUTO 80 % (41-73); Platelet Count 276 K/mm3 (150-400); RDW Standard Deviation 73.3 fL (35.1-46.3); White Blood Cell Count 17.73 K/mm3 (4.00-11.30)
[2021-04-11 04:25] LABS: Albumin, Blood 1.2 g/dL (3.4-5.0); Anion Gap 12 mmol/L (6-16); Blood Urea Nitrogen 13 mg/dL (8-24); Bun/Creatinine Ratio 16.6 (12.0-20.0); CO2, Blood 19 mmol/L (21-32); Calcium, Blood 7.9 mg/dL (8.5-10.1); Chloride, Blood 117 mmol/L (98-108); Creatinine, Blood 0.79 mg/dL (0.40-1.00); Glomerular Filtration Rate >60 (60-); Glucose, Blood 121 mg/dL (70-99); Phosphorus, Blood 2.2 mg/dL (2.5-4.9); Potassium, Blood 3.1 mmol/L (3.5-5.5); Sodium, Blood 148 mmol/L (136-145); Triglycerides 114 mg/dL (30-160)
--- NOTE | 2021-04-11 09:11 | NUR ---
CARE OF PT ASSUMED AT 0700. PT SEDATED ON PROPOFOL AT 30MCG FOR MECH VENT CRISTO. PT OPENS EYES TO VOIVE AND FOLLOWS SIMPLE COMMANDS. PT ABLE TO SOMETIMES NOD HEAD APPROPRIATELY TO QUESTIONS. LEVOPHED AT 1MCG THIS AM, PLACED ON STANBY FOR MAP >65. 20MMOL KPHOS INFUSING. DR BUENO AND DR KIRBY IN TO SEE PT, FULL UPDATE GIVEN.
[2021-04-11 12:05] LABS: Hematocrit 21.7 % (33.0-51.0)
--- NOTE | 2021-04-11 12:09 | NUR ---
PROPOFOL DECREASED TO 20MCG. PT PLACED ON SBT 01/16. DR BRISENO INTO SEE PT EARLIER, FULL UPDATE GIVEN. 30MMOL KPHOS INFUSING. LABS DRAWN. TUBE FEEDS CHANGED TO PIVOT I.5
[2021-04-11 12:20] LABS: Anion Gap 12 mmol/L (6-16); Blood Urea Nitrogen 12 mg/dL (8-24); Bun/Creatinine Ratio 15.3 (12.0-20.0); CO2, Blood 18 mmol/L (21-32); Calcium, Blood 7.8 mg/dL (8.5-10.1); Chloride, Blood 117 mmol/L (98-108); Creatinine, Blood 0.78 mg/dL (0.40-1.00); Glomerular Filtration Rate >60 (60-); Glucose, Blood 125 mg/dL (70-99); Potassium, Blood 3.4 mmol/L (3.5-5.5); Sodium, Blood 147 mmol/L (136-145)
--- NOTE | 2021-04-11 16:32 | NUR ---
PT'S SISTER'S IN TO VISIT TODAY, UPDATE GIVEN. BANANA FLAKES STARTED TODAY FOR EXCESSIVE LIQUID STOOLS. EXTERNAL HEMORRHOIDS NOTED. PT HAD BEEN BEARING DOWN CONSISTENTLY DURING CARE EARLIER THIS WEEK. PT HAS BEEN CRISTO SBT 01/16 VERY WELL. COARSE LUNGS SOUNDS PERSIST, MINIMAL ETT SECRETIONS. PROPOFOL REMAINS AT 20MCG. LEVOPHED HAS BEEN OFF SINCE THIS AM. MAPS >65.
[2021-04-11 17:51] LABS: Hematocrit 21.7 % (33.0-51.0)
[2021-04-12 03:39] LABS: BASOPHILS ABSOLUTE AUTO 0.03 K/mm3 (0.00-0.23); BASOPHILS PERCENT AUTO 0 % (0-2); EOSINOPHILS PERCENT AUTO 1 % (0-6); Hemoglobin 6.8 g/dL (11.5-16.0); IMMATURE GRAN ABSOLUTE AUTO 0.55 K/mm3 (0.00-0.10); IMMATURE GRAN PERCENT AUTO 3 % (0-1); LYMPHOCYTES ABSOLUTE AUTO 1.86 K/mm3 (0.84-5.20); LYMPHOCYTES PERCENT AUTO 12 % (21-46); MONOCYTES ABSOLUTE AUTO 0.99 K/mm3 (0.16-1.47); MONOCYTES PERCENT AUTO 6 % (4-13); Mean Corpuscular HGB Conc 32.4 g/dL (31.5-36.5); Mean Corpuscular Volume 105 fL (80-100); Mean Platelet Volume 11.9 fL (9.1-12.4); NEUTROPHILS ABSOLUTE AUTO 12.69 K/mm3 (1.96-9.15); NEUTROPHILS PERCENT AUTO 78 % (41-73); NRBC ABSOLUTE 0.03 K/mm3 (0.00-0.02); NRBC Auto 0.2 /100 WBC (0.0-0.2); Platelet Count 291 K/mm3 (150-400); RDW Coefficient Variation 18.7 % (11.7-14.2); RDW Standard Deviation 70.6 fL (35.1-46.3); White Blood Cell Count 16.22 K/mm3 (4.00-11.30)
[2021-04-12 03:56] LABS: Albumin, Blood 1.2 g/dL (3.4-5.0); Anion Gap 12 mmol/L (6-16); Blood Urea Nitrogen 13 mg/dL (8-24); Bun/Creatinine Ratio 16.2 (12.0-20.0); CO2, Blood 18 mmol/L (21-32); Calcium, Blood 7.6 mg/dL (8.5-10.1); Chloride, Blood 117 mmol/L (98-108); Glomerular Filtration Rate >60 (60-); Glucose, Blood 125 mg/dL (70-99); Potassium, Blood 3.4 mmol/L (3.5-5.5); Sodium, Blood 147 mmol/L (136-145)
--- NOTE | 2021-04-12 06:05 | NUR ---
SHIFT SUMMARY: PT ALERT, FOLLOWS COMMANDS AND ABLE TO NOD YES/NO TO QUESTIONS. CAN MOVE EXTREMITIES BUT VERY WEAK, UNABLE TO FULLY SQUEEZE FINGERS OR GIVE THUMBS UP. LIGHTLY SEDATED WITH PROPOFOL. REMAINS INTUBATED, WAS TOLERATING AC SPONT SETTING UNTIL 2100, WAS CHANGED BACK TO AC/VC MODE 14/350/30%/8. OCCASSIONAL COUGH WITH NO SECRETIONS. BP STABLE, EDEMATOUS ON HANDS AND FEET. REMAINS ON TF, NO RESIDUALS NOTED. RECTAL TUBE AND MCCORMACK CATHETER REMAINS PATENT AND DRAINING TO GRAVITY. STILL HAVING LIQUID STOOLS. Q2H TURNS FOR SKIN INTEGRITY. PICC LINE CLEAN, DRY AND INTACT.
--- NOTE | 2021-04-12 07:12 | NUR ---
TOOK OVER CARE OF PT AT 0700. VITALS STABLE AT THIS TIME. PT VENTILATED ON A/C V/C 14/350/8/30%, WITH 20 OF PROPOFOL RUNNING AND POTASSIUM REPLACEMENT GOING.
--- NOTE | 2021-04-12 11:36 | NUR ---
PT PLACES ON PRESSURE SUPPORT 10/ 30%
[2021-04-12 12:41] LABS: Vancomycin, Trough 20.7 ug/mL (5.0-10.0)
--- NOTE | 2021-04-12 15:10 | NUR ---
Review of pt with nursing and intesivist and team in rounding. Review of pt past admissions and medical care trends. Since 2017 pt has had increased access to medical care and hopital admissions. pt kps score is 30% albumin below 2 and requiring blood products. Suggested they markok ebony newman and her family regarding her chirosis and pt may need hospice care.
--- NOTE | 2021-04-12 18:04 | NUR ---
SUMMARY NEURO; SEDATED ON 20 OF PROPOFOL, FOLLOWS COMMANDS, PUPILS EQUAL AT THIS TIME LUNGS; PT ON PS 10/5 30%, DIMINISHED BASES GI/; COPIUS OUTPUT, SEE I/O CHARTING. LIQUID STOOL CARDIAC; NSR, GENERALIZED EDEMA DECREASING
--- NOTE | 2021-04-12 20:00 | NUR ---
ASSUMED CARE OF PT AT 191. REPORT RECEIVED. PT PRESENTS IN BED. PS AT THIS TIME. PT TOLERATING WELL. DOES OPEN EYES AND ABLE TO TRACK. NODS HEAD 'YES' AND 'NO' TO QUESTIONS. PROPOFOL AT 20 MCG'S PER HOUR. WILL REVIEW CHART AND PLAN OF CARE FOR THIS PT.
[2021-04-13 05:34] LABS: BASOPHILS ABSOLUTE AUTO 0.08 K/mm3 (0.00-0.23); BASOPHILS PERCENT AUTO 0 % (0-2); EOSINOPHILS ABSOLUTE AUTO 0.35 K/mm3 (0.00-0.68); EOSINOPHILS PERCENT AUTO 2 % (0-6); Hematocrit 26.4 % (33.0-51.0); Hemoglobin 8.5 g/dL (11.5-16.0); IMMATURE GRAN ABSOLUTE AUTO 0.83 K/mm3 (0.00-0.10); IMMATURE GRAN PERCENT AUTO 5 % (0-1); LYMPHOCYTES ABSOLUTE AUTO 2.19 K/mm3 (0.84-5.20); LYMPHOCYTES PERCENT AUTO 12 % (21-46); MONOCYTES ABSOLUTE AUTO 1.16 K/mm3 (0.16-1.47); MONOCYTES PERCENT AUTO 7 % (4-13); Mean Corpuscular HGB 33.3 pg (26.0-34.0); Mean Corpuscular HGB Conc 32.2 g/dL (31.5-36.5); Mean Corpuscular Volume 104 fL (80-100); Mean Platelet Volume 11.9 fL (9.1-12.4); NEUTROPHILS ABSOLUTE AUTO 13.25 K/mm3 (1.96-9.15); NEUTROPHILS PERCENT AUTO 74 % (41-73); NRBC ABSOLUTE 0.03 K/mm3 (0.00-0.02); NRBC Auto 0.2 /100 WBC (0.0-0.2); Platelet Count 356 K/mm3 (150-400); RDW Coefficient Variation 22.9 % (11.7-14.2); Red Blood Cell Count 2.55 M/mm3 (3.80-5.20); White Blood Cell Count 17.86 K/mm3 (4.00-11.30)
[2021-04-13 05:57] LABS: Albumin, Blood 1.3 g/dL (3.4-5.0); Anion Gap 9 mmol/L (6-16); Blood Urea Nitrogen 17 mg/dL (8-24); Bun/Creatinine Ratio 24.1 (12.0-20.0); CO2, Blood 21 mmol/L (21-32); Calcium, Blood 8.5 mg/dL (8.5-10.1); Chloride, Blood 120 mmol/L (98-108); Glomerular Filtration Rate >60 (60-); Glucose, Blood 118 mg/dL (70-99); Phosphorus, Blood 2.5 mg/dL (2.5-4.9); Potassium, Blood 3.9 mmol/L (3.5-5.5); Sodium, Blood 150 mmol/L (136-145)
--- NOTE | 2021-04-13 06:43 | NUR ---
HAVE DONE Q 2 HOUR TURNS IN BED. DIGNISHIELD POSITIONED FOR GOOD DRAINAGE. HAS APPROX 600 ML LIQUID BROWN STOOL. DID DO BAG CHANGE THIS AM. PT HAS BEEN ON ASSIST CONTROL 14, Tv 325, FIO2 30 PERCENT, PEEP 5. PT HAS BEEN ON SEDATION VACATION FOR APPROX 1 HOUR THIS MORNING. TOLERATING THIS WELL. BEDBATH DONE THIS AM SECONDARY TO SOME LEAKAGE AROUND DIGNISHIELD. DID PLACE BARRIER CREAM TO GLUTEAL AND JOCELYN AREA FOR SKIN PROTECTION. WILL CONTINUE TO MONITOR PT, AND WILL REPORT OFF TO ONCOMING RN.
--- NOTE | 2021-04-13 07:20 | NUR ---
TOOK OVER CARE OF PT AT 04/13/21, PT NOT SEDATED, FOLLOWING COMMANDS ON VC/AC 14/325/P5/30%
--- NOTE | 2021-04-13 10:22 | NUR ---
PT SWITCHED TO PRESSURE SUPPORT 08/13 30%
[2021-04-13 13:12] LABS: Hematocrit 26.8 % (33.0-51.0); Hemoglobin 8.8 g/dL (11.5-16.0)
[2021-04-13 13:28] LABS: Albumin, Blood 1.5 g/dL (3.4-5.0); Anion Gap 9 mmol/L (6-16); Blood Urea Nitrogen 19 mg/dL (8-24); Bun/Creatinine Ratio 25.4 (12.0-20.0); CO2, Blood 23 mmol/L (21-32); Calcium, Blood 8.7 mg/dL (8.5-10.1); Chloride, Blood 119 mmol/L (98-108); Creatinine, Blood 0.75 mg/dL (0.40-1.00); Glomerular Filtration Rate >60 (60-); Glucose, Blood 141 mg/dL (70-99); Phosphorus, Blood 2.2 mg/dL (2.5-4.9); Potassium, Blood 3.9 mmol/L (3.5-5.5); Sodium, Blood 151 mmol/L (136-145)
--- NOTE | 2021-04-13 16:46 | NUR ---
SUMMARY NEURO: PT OFF SEDATION, ON PRESSURE SUPPORT VENTILATION. GENERALIZED WEAKNESS BUT FOLLOWS COMMANDS AND NODS HEAD. PUPILS EQUAL AT THIS TIME. CARDIAC; NSR, PVC'S WITH DEEP TURNS/REPOSITIONING. +1 EDEMA BLE, +2BUE. LUNGS VENTED ON PRESSURE SUPPORT 8/5 30%. LARGE CLEAR SECRETIONS TODAY GI; EXCORIATION ON PERIANAL AREA, LARGE FMS OUTPUT THAT IS MORE [place] THAN YESTERDAY. TUBE FEEDING RUNNING AT GOAL, NO RESIDUALS. ; MCCORMACK IN PLACE, EXCORIATED AT SITE, YELLOW OUTPUT.
--- NOTE | 2021-04-13 20:30 | NUR ---
ASSUMPTION OF CARE/CALL TO DR. BRISENO RECEIVED REPORT FROM MICHELLE YOUSIF AT 1900. PT IS INTUBATED WITHOUT SEDATION AT THIS TIME. ON PRESSURE SUPPORT OF 8/5, FIO2 30%. SHE IS ALERT TO SELF AND IS ABLE TO NOD YES/NO TO QUESTIONS. PROFOUND WEAK MOVEMENTS. AFEBRILE. LUNGS ARE CLEAR THROUGHOUT, MINIMAL SECRETIONS WITH ETT SUCTION. ETT 7.5, 21 CM AT LIP. SPO2 >95%. HR IS NSR, RATE IN 90'S. BP STABLE. NG TUBE WITH PIVOT 1.5 AT GOAL OF 30ML/HR, 200ML Q4H H20 FLUSHES. RECTAL TUBE IN PLACE, EXCESSIVE LEAKAGE AROUND TUBE. REPOSITIONED AND LINEN CHANGED. MCCORMACK PATENT, DRAINING TO GRAVITY. PLAN TO CHANGE VENT TO AC/VC AND RESTART PROPOFOL. CALL TO DR. BRISENO RE: MAG LEVEL OF 1.7, 2GM ORDERED FOR REPLACEMENT. ORDERS REVIEWED, WILL TREAT PRESCRIBED.
[2021-04-14 04:20] LABS: BASOPHILS ABSOLUTE AUTO 0.07 K/mm3 (0.00-0.23); BASOPHILS PERCENT AUTO 0 % (0-2); EOSINOPHILS PERCENT AUTO 1 % (0-6); Hemoglobin 8.1 g/dL (11.5-16.0); IMMATURE GRAN ABSOLUTE AUTO 0.48 K/mm3 (0.00-0.10); IMMATURE GRAN PERCENT AUTO 3 % (0-1); LYMPHOCYTES ABSOLUTE AUTO 2.43 K/mm3 (0.84-5.20); LYMPHOCYTES PERCENT AUTO 13 % (21-46); MONOCYTES ABSOLUTE AUTO 1.12 K/mm3 (0.16-1.47); MONOCYTES PERCENT AUTO 6 % (4-13); Mean Corpuscular HGB 32.4 pg (26.0-34.0); Mean Corpuscular HGB Conc 31.2 g/dL (31.5-36.5); Mean Corpuscular Volume 104 fL (80-100); Mean Platelet Volume 11.3 fL (9.1-12.4); NEUTROPHILS ABSOLUTE AUTO 14.08 K/mm3 (1.96-9.15); NEUTROPHILS PERCENT AUTO 77 % (41-73); Platelet Count 412 K/mm3 (150-400); RDW Coefficient Variation 22.5 % (11.7-14.2); RDW Standard Deviation 84.1 fL (35.1-46.3); White Blood Cell Count 18.28 K/mm3 (4.00-11.30)
[2021-04-14 04:41] LABS: Albumin, Blood 1.5 g/dL (3.4-5.0); Anion Gap 8 mmol/L (6-16); Blood Urea Nitrogen 20 mg/dL (8-24); Bun/Creatinine Ratio 31.2 (12.0-20.0); CO2, Blood 23 mmol/L (21-32); Calcium, Blood 8.7 mg/dL (8.5-10.1); Chloride, Blood 117 mmol/L (98-108); Creatinine, Blood 0.64 mg/dL (0.40-1.00); Glomerular Filtration Rate >60 (60-); Glucose, Blood 146 mg/dL (70-99); Phosphorus, Blood 2.2 mg/dL (2.5-4.9); Potassium, Blood 3.5 mmol/L (3.5-5.5); Sodium, Blood 148 mmol/L (136-145); Vancomycin, Random 12.5 ug/mL
[2021-04-14 04:43] LABS: International Normalized Ratio 1.04; Prothrombin Time Results 10.9 Sec (9.7-11.5)
--- NOTE | 2021-04-14 06:58 | NUR ---
PT REMAINS INTUBATED AND SEDATED. PROPOFOL AT 15MCG/KG/MIN. SHE OPENS EYES SPONTANEOUSLY, ABLE TO FOLLOW SOME COMMANDS, PROFOUNDLY WEAK, SYNCHRONOUS WITH VENT, OCCASIONAL COUGH. VENT IS AC/VC 14/325/5/30% WITH SPO2 >96%. LUNGS CLEAR WITH CRACKLES IN LEFT BASE. HR NSR, RATE IN 60'S. BP STABLE. NG REMAINS PATENT, TUBE FEED CONTINUES AT GOAL. RECTAL TUBE PATENT, 1500ML STOOL OUT, BAG CHANGED. DRY FLOW PADS CHANGED WITH Q2H TURNS. MCCORMACK PATENT, DRAINING YUNIEL URINE. SKIN IS FRAGILE, EDEMATOUS THROUGHOUT. CURRENTLY RECEIVING 20MM K-PHOS FOR REPLACEMENT THIS MORNING, ORDERS BY DR. NARANJO. WILL REPORT TO ONCOMING SHIFT WHEN AVAILABLE.
--- NOTE | 2021-04-14 07:27 | NUR ---
TOOK OVER CARE OF PT AT 0700, PT VENTED ON VC/AC 14/325/5/30% WITH 15 OF PROPOFOL RUNNING.
[2021-04-14 13:24] LABS: Iron Serum 46 ug/dL (50-170); Percent Saturation 27.4 % (15.0-50.0); Total Iron Binding Capacity 168 ug/dL (250-450)
[2021-04-14 13:27] LABS: Albumin, Blood 1.6 g/dL (3.4-5.0); Anion Gap 7 mmol/L (6-16); Blood Urea Nitrogen 20 mg/dL (8-24); Bun/Creatinine Ratio 35.6 (12.0-20.0); CO2, Blood 24 mmol/L (21-32); Calcium, Blood 8.5 mg/dL (8.5-10.1); Chloride, Blood 117 mmol/L (98-108); Creatinine, Blood 0.56 mg/dL (0.40-1.00); Glomerular Filtration Rate >60 (60-); Glucose, Blood 130 mg/dL (70-99); Phosphorus, Blood 3.6 mg/dL (2.5-4.9); Potassium, Blood 4.2 mmol/L (3.5-5.5); Sodium, Blood 148 mmol/L (136-145)
--- NOTE | 2021-04-14 15:57 | NUR ---
SUMMARY NEURO; PT EYES OPEN, CALM, FOLLOWING COMMANDS, PUPILS EQUAL. AMMONIA STILL ELEVATED, PT ON 10 OF PROPOFOL. CARDIAC: NSR, NORMOTENSIVE. LUNGS; COARSE L UPPER LOBE, DIMINISHED BASES. CLEAR SECRETIONS. PT ON PS 8/5 30%. GI: FMS IN PLACE, DRAINING WATERY BROWN STOOL. ENZYMES AND BANATROL GIVEN. Q4 200ML FLUSHES AND VITAL HPO AT 35ML/HR, NO RESIDUALS. PT MEDS SWITCHED TO IV DT POOR ABSORPTION TODAY. ; YELLOW OUTPUT, EXCORIATION AT SITE. LASIX DC'D TODAY. SKIN; EXCORIATION AROUND RECTAL TUBE AND PERIANAL AREA. SUREPREP SKIN BARRIER APPLIED TO REDDENED AREA THEN ZINC CREAM OVER. CLOVER MEPILEXES APPLIED TO TROCHANTERS, HEEL MEPILEXES AND FOAM HEEL PROTECTORS IN PLACE.
--- NOTE | 2021-04-14 18:57 | NUR ---
review of pt symptom and prognosis with staff.
--- NOTE | 2021-04-14 22:21 | NUR ---
ASSUMED CARE @1900 PATIENT IS ALERT AND ORIENTED TO SELF AND FOLLOWING COMMANDS. INTUBATED AND SEDATED ON PROPOFOL. ABLE TO NOD YES/NO TO QUESTIONS. 02 SATS 100% ON VENT SPONT PS 8/5/30%, RR 22. HR SR @80s. SMALL AMOUNT OF MERRITT SPUTUM SUCTIONED. BP STABLE. TF INF VITAL HP AT GOAL 35 MLS/HR WITH 50 MLS/HR FLUSHES. RECTAL TUBE DRAINING LIQUID STOOL. MCCORMACK PATENT AND DRAINING TO GRAVITY. REPOSITIONED AND ORAL CARE DONE. SEE SHIFT ASSESSMENT FOR MORE DETAIL.
[2021-04-15 05:29] LABS: BASOPHILS ABSOLUTE AUTO 0.04 K/mm3 (0.00-0.23); BASOPHILS PERCENT AUTO 0 % (0-2); EOSINOPHILS ABSOLUTE AUTO 0.05 K/mm3 (0.00-0.68); EOSINOPHILS PERCENT AUTO 0 % (0-6); Hematocrit 24.6 % (33.0-51.0); Hemoglobin 7.8 g/dL (11.5-16.0); IMMATURE GRAN ABSOLUTE AUTO 0.27 K/mm3 (0.00-0.10); IMMATURE GRAN PERCENT AUTO 2 % (0-1); LYMPHOCYTES ABSOLUTE AUTO 2.33 K/mm3 (0.84-5.20); LYMPHOCYTES PERCENT AUTO 13 % (21-46); MONOCYTES ABSOLUTE AUTO 0.93 K/mm3 (0.16-1.47); MONOCYTES PERCENT AUTO 5 % (4-13); Mean Corpuscular HGB 32.9 pg (26.0-34.0); Mean Corpuscular HGB Conc 31.7 g/dL (31.5-36.5); Mean Corpuscular Volume 104 fL (80-100); Mean Platelet Volume 10.8 fL (9.1-12.4); NEUTROPHILS PERCENT AUTO 80 % (41-73); Platelet Count 413 K/mm3 (150-400); RDW Coefficient Variation 21.4 % (11.7-14.2); Red Blood Cell Count 2.37 M/mm3 (3.80-5.20); White Blood Cell Count 17.72 K/mm3 (4.00-11.30)
--- NOTE | 2021-04-15 06:32 | NUR ---
SHIFT SUMMARY PATIENT REMAINS ALERT AND ORIENTED TO SELF AND FOLLOWING DIRECTIONS. INTUBATED AND SEDATED ON PROPFOL. OCCASIONALLY WOULD GET AGITATED AND REACH FOR NG TUBE. PATIENT SWITCH FROM SPONT PS TO AC VC 14/325/5/30% 02 SATS 100%. HR SR @75, BP STABLE. LIQUID STOOL THROUGH RECTAL TUBE. MCCORMACK DRAINING TO GRAVITY. TUBE FEED INF AT GOAL RATE VITAL HP 35 MLS/HR WITH 50 MLS/HR FLUSHES. BEDBATH DONE. ALL PROTECTIVE MEPELEX CHANGED AND PICTURES OF SKIN UPDATES. ORAL CARE DONE Q4 HOURS. PATIENT REPOSITONED Q4 HOURS.
--- NOTE | 2021-04-15 07:36 | NUR ---
ASSUMED CARE: PT INTUBATED WITH SETTINGS AC 14/325/5/30%. RT AT BEDSIDE AT THIS TIME. SEDATED WITH PROPOFOL AT 10MCG/KG. PT STILL ABLE TO MOVE HEAD AND NOD TO YES/NO QUESTIONS. NSR ON TELE AT 77 AT THIS TIME. BILATERAL WRIST RESTRAINTS IN PLACE TO PROTECT LINES. NO ACUTE NEEDS AT THIS TIME.
[2021-04-15 08:58] LABS: Albumin, Blood 1.5 g/dL (3.4-5.0); Anion Gap 8 mmol/L (6-16); Blood Urea Nitrogen 18 mg/dL (8-24); Bun/Creatinine Ratio 37.4 (12.0-20.0); CO2, Blood 24 mmol/L (21-32); Calcium, Blood 8.5 mg/dL (8.5-10.1); Chloride, Blood 116 mmol/L (98-108); Creatinine, Blood 0.48 mg/dL (0.40-1.00); Glomerular Filtration Rate >60 (60-); Glucose, Blood 131 mg/dL (70-99); Phosphorus, Blood 2.8 mg/dL (2.5-4.9); Potassium, Blood 3.7 mmol/L (3.5-5.5); Sodium, Blood 148 mmol/L (136-145)
--- NOTE | 2021-04-15 13:01 | NUR ---
PT'S SISTER AT BEDSIDE AND STATED THAT SHE SPOKE WITH HER SISTER AND HER SISTER WOULD NOT WANT A TRACH. SISTER THEN ASKED HOW LONG PT WOULD BE ABLE TO STAY INTUBATED. DR ARIAS AT BEDSIDE HAVING A CONVERSATION WITH PT AND FAMILY AT THIS TIME.
--- NOTE | 2021-04-15 13:14 | NUR ---
PT GAVE CONSENT TO PROVIDE CARE BY NODDING.
--- NOTE | 2021-04-15 14:11 | NUR ---
Met pt. lying in bed slepping ,offered prayers for pt. in silence and blessed pt
--- NOTE | 2021-04-15 18:35 | NUR ---
PT IS STILLINTUBATED AND ON A VENT AC/VC 14/325/5/30%. PT PICC IN ANGÉLICA IS STILL PATENT. NG TUBE IS STILL PATENT. RECTAL TUBE STILL PATENT AND BAG CHANGED. PT IS ALERT AND IS ABLE TO FOLLOW COMMANDS. THE PATIENT IS ON SEDATION PROPOFOL 15MG/KG/HR. PT HAS GENERALIZED WEAKNESS IN ALL EXTREMITIES. PT LIPASE HAS BEEN CHANGED TO BE MIXED WITH SODIUM BICARD TO HELP DISOLVE THE LIPASE SO THAT IT CAN BE ADMINISTERED THROUGH THE NG TUBE. PT IS ON CONTIOUS ENTEREAL FEEDING AND IT IS PATENT. PT HAS SOFT RESTRAINTS ON BOTH WRISTS WHICH ARE SECURED. 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 PT HAS REDNESS AND PROTRUDING HEMMOROIDS AROUND THE ANUS. THE PT IS CURRENTLY SITTING IN BED AWAKE. READYING FOR HANDOVER TO PLUNGER SHOVEL OPERATOR.
--- NOTE | 2021-04-15 21:48 | NUR ---
ASSUMED CARE AT 1900 PATIENT IS ALERT AND ORIENTED TO SELF AND FOLLOWING COMMANDS. ABLE TO NOD YES/NO TO QUESTIONS. MOVES ALL EXTREMETIES BUT PROFOUNDLY WEAK. HAD PATIENT PARTICIPATE IN REPOSITIONING BY HELPING PULL HERSELF SIDE TO SIDE. 02 SATS 100% ON VENT AC VC 14/325/5/30%. LS CLEAR TO DIM. TALKED WITH DR. ARIAS ABOUT PATIENT BEING ON SPONT, WILL TRY IN THE AM. HR SR @80s. BP STABLE. MCCORMACK DRAINING TO GRAVITY. RECTAL TUBE DRAINING LIQUID STOOL. TUBE FEED INF AT GOAL RATE, WITH 300 MLS FLUSHES Q4 HOURS, TALKED WITH HUGO ABOUT FLUSH RATE ORDERS TO PUT IT BACK AT 50 MLS/HR FLUSHES IF ANY NAUSEA OR VOMITING. BEDBATH COMPLETE. SEE SHIFT ASSESSMENT FOR MORE DETAIL.
[2021-04-16 05:47] LABS: Vancomycin, Random 11.2 ug/mL
--- NOTE | 2021-04-16 06:25 | NUR ---
SHIFT SUMMARY PATIENT IS ALERT AND ORIENTED TO SELF AND FOLLOWING COMMANDS SEDATED WITH PROPOFOL. DOES GET AGITATED AND TRIES TO PULL AT NG TUBE. ONLY SLEPT ABOUT AN HOUR OR TWO. 02 SATS 100% ON VENT AT AC VC 14/325/5/30%. HR SR TO SB 50s-70s. BP STABLE. RECTAL TUBE DRAINING LIGHT BROWN STOOL TO GRAVITY. MCCORMACK DRAINING TO GRAVITY. BED BATH DONE. TURNED Q2 HOURS. ORAL CARE Q4 HOURS.
--- NOTE | 2021-04-16 07:31 | NUR ---
ASSUMED CARE: PT ALERT BUT APPEARS COMFORTABLE ON 15MG/KG PROPOFOL. INTUBATED WITH SETTINGS AC 14/325/5/30%. TF AT GOAL, MCCORMACK AND RECTAL TUBES PATENT AT THIS TIME. NSR ON TELE, NO ACUTE NEEDS AT THIS TIME.
[2021-04-16 09:58] LABS: Base Excess Venous 0.6 mmol/L; PCO2 Venous 33.2 mmHg (38-42); pH Blood Venous 7.47 (7.34-7.37)
[2021-04-16 10:06] LABS: BASOPHILS ABSOLUTE AUTO 0.05 K/mm3 (0.00-0.23); BASOPHILS PERCENT AUTO 0 % (0-2); EOSINOPHILS ABSOLUTE AUTO 0.07 K/mm3 (0.00-0.68); EOSINOPHILS PERCENT AUTO 1 % (0-6); Hematocrit 25.5 % (33.0-51.0); Hemoglobin 7.8 g/dL (11.5-16.0); IMMATURE GRAN ABSOLUTE AUTO 0.25 K/mm3 (0.00-0.10); IMMATURE GRAN PERCENT AUTO 2 % (0-1); LYMPHOCYTES ABSOLUTE AUTO 1.89 K/mm3 (0.84-5.20); LYMPHOCYTES PERCENT AUTO 12 % (21-46); MONOCYTES ABSOLUTE AUTO 0.89 K/mm3 (0.16-1.47); MONOCYTES PERCENT AUTO 6 % (4-13); Mean Corpuscular HGB 32.9 pg (26.0-34.0); Mean Corpuscular HGB Conc 30.6 g/dL (31.5-36.5); Mean Corpuscular Volume 108 fL (80-100); Mean Platelet Volume 10.9 fL (9.1-12.4); NEUTROPHILS ABSOLUTE AUTO 12.26 K/mm3 (1.96-9.15); NEUTROPHILS PERCENT AUTO 80 % (41-73); Platelet Count 450 K/mm3 (150-400); RDW Coefficient Variation 20.3 % (11.7-14.2); RDW Standard Deviation 79.7 fL (35.1-46.3); Red Blood Cell Count 2.37 M/mm3 (3.80-5.20); White Blood Cell Count 15.41 K/mm3 (4.00-11.30)
[2021-04-16 10:23] LABS: Albumin, Blood 1.5 g/dL (3.4-5.0); Anion Gap 5 mmol/L (6-16); Blood Urea Nitrogen 13 mg/dL (8-24); Bun/Creatinine Ratio 30.1 (12.0-20.0); CO2, Blood 23 mmol/L (21-32); Calcium, Blood 8.4 mg/dL (8.5-10.1); Chloride, Blood 112 mmol/L (98-108); Creatinine, Blood 0.43 mg/dL (0.40-1.00); Glomerular Filtration Rate >60 (60-); Glucose, Blood 121 mg/dL (70-99); Phosphorus, Blood 2.8 mg/dL (2.5-4.9); Potassium, Blood 4.3 mmol/L (3.5-5.5); Sodium, Blood 140 mmol/L (136-145)
--- NOTE | 2021-04-16 11:30 | NUR ---
OT AT BEDSIDE DOING EARLY MOBILIZATION WITH PT.
--- NOTE | 2021-04-16 14:25 | NUR ---
Pt.on vent lying in bed , offered prayers for the pt.
--- NOTE | 2021-04-16 18:54 | NUR ---
SHIFT SUMMARY: PT IS ON PS 10/7 AND 30% FIO2. APNEIC PERIODS X2 BUT RESOLVED AND HAS REMAINED ON PS ON VENT SINCE THIS AM. PLAN IS TO REMAIN ON PS LONG TOLERATES. PROPOFOL GTT AT 15MCG/KG AT THIS TIME. NSR IN 60S. RECTAL TUBE IN PLACE. SAT IN CHAIR POSITION ONCE AND WORKED WITH OT EARLIER TODAY. PHYSICAL THERAPY PLANNING ON WORKING WITH PT TOMORROW. NO ACUTE NEEDS AT THIS TIME.
--- NOTE | 2021-04-16 23:07 | NUR ---
ASSUMED CARE AT 1900 PATIENT IS ALERT AND ORIENTED TO SELF AND FOLLOWING COMMANDS, SEDATED WITH PROPOFOL TO TOLERATE VENT. MOVES ALL EXTREMETIES AND PARTICIPATING WITH REPOSITIONING. 02 SATS 100% ON VENT SPONT PS 10/5/30%. RR 20s. HR SR @90s, BP STABLE. TUBE FEED AT GOAL RATE OPF VITAL HP 35 MLS/HR, 150 MLS FLUSHES Q4 HOURS. RECTAL TUBE DRAINING LIGHT BROWN/YELLOW LIQUID STOOL. MCCORMACK DRAINING TO GRAVITY. ORAL CARE AND REPOSITIONING DONE. SEE SHIFT ASSESSMENT FOR MORE DETAIL.
[2021-04-17 03:27] LABS: BASOPHILS ABSOLUTE AUTO 0.08 K/mm3 (0.00-0.23); BASOPHILS PERCENT AUTO 1 % (0-2); EOSINOPHILS ABSOLUTE AUTO 0.12 K/mm3 (0.00-0.68); EOSINOPHILS PERCENT AUTO 1 % (0-6); Hematocrit 24.2 % (33.0-51.0); Hemoglobin 7.7 g/dL (11.5-16.0); IMMATURE GRAN ABSOLUTE AUTO 0.56 K/mm3 (0.00-0.10); IMMATURE GRAN PERCENT AUTO 4 % (0-1); LYMPHOCYTES PERCENT AUTO 14 % (21-46); MONOCYTES ABSOLUTE AUTO 0.83 K/mm3 (0.16-1.47); MONOCYTES PERCENT AUTO 6 % (4-13); Mean Corpuscular HGB 33.2 pg (26.0-34.0); Mean Corpuscular HGB Conc 31.8 g/dL (31.5-36.5); Mean Corpuscular Volume 104 fL (80-100); Mean Platelet Volume 10.7 fL (9.1-12.4); NEUTROPHILS ABSOLUTE AUTO 10.86 K/mm3 (1.96-9.15); NEUTROPHILS PERCENT AUTO 75 % (41-73); Platelet Count 449 K/mm3 (150-400); RDW Coefficient Variation 19.9 % (11.7-14.2); RDW Standard Deviation 75.1 fL (35.1-46.3); Red Blood Cell Count 2.32 M/mm3 (3.80-5.20); White Blood Cell Count 14.45 K/mm3 (4.00-11.30)
[2021-04-17 03:49] LABS: Alanine Aminotransfer (ALT/SGP 43 U/L (12-78); Albumin, Blood 1.6 g/dL (3.4-5.0); Albumin/Globulin Ratio 0.4 (0.8-1.8); Alk Phos 113 U/L (50-136); Anion Gap 7 mmol/L (6-16); Aspartate Aminotrans (AST/SGOT 32 U/L (12-37); Bilirubin, Total 0.5 mg/dL (0.1-1.0); Blood Urea Nitrogen 10 mg/dL (8-24); Bun/Creatinine Ratio 24.9 (12.0-20.0); CO2, Blood 24 mmol/L (21-32); Calcium, Blood 8.9 mg/dL (8.5-10.1); Chloride, Blood 107 mmol/L (98-108); Glomerular Filtration Rate >60 (60-); Glucose, Blood 110 mg/dL (70-99); Magnesium, Blood 1.6 mg/dL (1.6-2.4); Phosphorus, Blood 2.7 mg/dL (2.5-4.9); Potassium, Blood 3.4 mmol/L (3.5-5.5); Sodium, Blood 138 mmol/L (136-145); Total Protein, Blood 5.6 g/dL (6.4-8.2); Vancomycin, Random 12.7 ug/mL
--- NOTE | 2021-04-17 06:08 | NUR ---
SHIFT SUMMARY PATIENT IS ALERT AND ORIENTED TO SELF AND FOLLOWING COMMANDS, ABLE TO NOD YES/NO TO QUESTION. LIGHTLY SEDATED ON PROPOFOL TO TOLERATE VENT. MAY BE SOME SIGNS OF CONFUSION OR JUST AGITATION, DIFFICULT TO COMMUNICATE WITH PATIENT ON VENT. 02 SATS 100% ON VENT, SPONT PS 10/5/30%. HR SR @80s, BP STABLE. TUBE FEED REMAINS AT GOAL RATE. RECTAL TUBE DRAINING LIQUID LIGHT BROWN/YELLOW STOOL, DECREASE IN OUTPUT, 300 MLS THIS SHIFT. MCCORMACK DRAINING TO GRAVITY. PATIENT REPOSITIONED Q2 HOURS. PATIENT ABLE TO ASSIST MINIMALLY WITH REPOSITIONING. ROM DONE, COMPRESSION DEVICES OFF PER PATIENT REQUEST, SHE IS LIFTING HER LEGS AND MOVING THEM FREQUENTLY.
--- NOTE | 2021-04-17 07:15 | NUR ---
Assumed care of pt at 0700. Report received from Monique MARTINEZ. Pt receiving 15 mcg/kg/min propofol for ventilator tolerance. Pt alert. Answers yes/no questions by nodding head. Follows commands. Vent settings PS 10/5 and 30% FiO2. SpO2 90% or greater. RR 24-28. Tidal volumes 275-300 mL.
--- NOTE | 2021-04-17 09:27 | NUR ---
Dr Jama in to see patient. Provider states plan for pt to be extuabted today. Provider to update sister. TF held at this time, per provider, in anticipation for extubation.
--- NOTE | 2021-04-17 11:45 | NUR ---
Pt extubated at 1050 by respiratory therapist. Pt currently on 1 LPM NC. SpO2 100%. Visiting with family at bedside.
--- NOTE | 2021-04-17 14:56 | NUR ---
Bedbath complete. Discussed appearace of skin under breasts, around rectal tube and flores with Dr Desouza. Pt's sister states that pt uses "Tucks" at home for external hemorrhoid relief. New orders received. After bedbath, miconazole powder applied under breasts, nystain cream applied to vulva and zinc oxide applied to excoriation from stool. Witch abrahan/glycerin pads applied to external hemorrhoids.
--- NOTE | 2021-04-17 16:29 | NUR ---
Pt was self-suctioning and caitlynfaraz got caught in NG tube. NG tube came out a scant amount while this RN in room. Resecured. Dr Jama notified. CXR obtained. NG tube in appropriate placement. 15 inches exposed, measured from nare to end of tube.
--- NOTE | 2021-04-17 17:21 | NUR ---
SUMMARY Neuro: Pt alert. Oriented to self and place. Correctly states it is April 2021. Pt continues to confuse this RN with her family member, Lisa. Pt is cooperative and continually verbalizes and demonstrates understanding that NG tube is not to be disrupted and therefore has been taken out of restraints. Moves all extremities with equal strength. PERRLA, pupils 3 mm. Musculoskeletal: Progressively getting stronger. Able to assist more with repositions and ADLs. Pt is self-suctioning with yankauer. Respiratory: Lungs clear, diminished in bases. SpO2 97% with room air. Dry, nonproductive cough. Cardiac: SR per monitor. BP stable. Trace edema BUE and BLE. 2+ radial and pedal pulses. Capillary refill less than 3 seconds BUE and BLE. GI: NG tube with feed and flush per orders. 0 mL residual measured. Verified NG placement with Xray and 15 cm exposed from nare to end up tube. Plan for ST eval tomorrow. Normal BT. Abd soft, nontender. Rectal tube in place. Large amount of liquid brown output today, approx 1100 mL. Lactulose held. : Farnsworth cathether in place, draining clear, yellow urine. Large amount of white discharge and yeast appearance to vulva. Nystatin ointment added. Skin: No changes to initial assessment. Using Miconazole powder beneath breasts. Zinc Oxide to perianal area. Psychosocial: Pt pleasant and cooperative with care. Confused at times but able to repeat back education that has been provided. Skin:
--- NOTE | 2021-04-17 20:27 | NUR ---
ASSUMPTION OF CARE RECEIVED REPORT FROM MICHELLE LEE AT 1900. PT WAS EXTUBATED EARLIER TODAY, CURRENTLY ON ROOM AIR, SPO2 >92%. SHE IS ALERT AND ORIENTED X2-3. SHE CONTINUED TO REQUEST TO DRINK SOMETHING AND GET UP AND WALK TO THE BATHROOM. ABLE TO REORIENT WELL AND SHE VERBALIZES UNDERSTANDING. LUNGS ARE CLEAR, DIM IN BASES. SHE IS SELF SUCTIONING TO MANAGE MINIMAL SECRETIONS. HR IS NSR, WITH RATE IN 80'S, INFUSION RN STABLE. NG TUBE IN PLACE TO LEFT NARE, SUPPOSED TO BE ABOUT 15CM OUT. VITAL HP AT GOAL OF 35ML/HR, 150ML Q4H H2O FLUSHES. RECTAL TUBE PATENT, DRAINING LIQUID BROWN STOOL. PT HAS PAIN AROUND RECTAL TUBE R/T HEMORRHOIDS, USING WITCH BA PADS AROUND TUBE. TEMP MCCORMACK PATENT, DRAINING TO GRAVITY. PT HAS LOW GRADE TEMP OF 99.4. VAGINA AND LABIA HAVE PROFOUND YEAST, PT C/O OF ITCHING, NYSTATIN OINTMENT USED PER EMAR. PT IS ABLE TO HELP WITH REPOSITIONING AND IS ABLE TO VOICE NEEDS WELL. ORDERS REVIEWED, WILL TREAT PRESCRIBED.
[2021-04-18 04:44] LABS: BASOPHILS ABSOLUTE AUTO 0.05 K/mm3 (0.00-0.23); BASOPHILS PERCENT AUTO 0 % (0-2); EOSINOPHILS ABSOLUTE AUTO 0.23 K/mm3 (0.00-0.68); EOSINOPHILS PERCENT AUTO 2 % (0-6); Hematocrit 25.4 % (33.0-51.0); Hemoglobin 8.2 g/dL (11.5-16.0); IMMATURE GRAN ABSOLUTE AUTO 0.45 K/mm3 (0.00-0.10); IMMATURE GRAN PERCENT AUTO 4 % (0-1); LYMPHOCYTES ABSOLUTE AUTO 1.97 K/mm3 (0.84-5.20); LYMPHOCYTES PERCENT AUTO 17 % (21-46); MONOCYTES ABSOLUTE AUTO 0.75 K/mm3 (0.16-1.47); MONOCYTES PERCENT AUTO 7 % (4-13); Mean Corpuscular HGB 33.5 pg (26.0-34.0); Mean Corpuscular HGB Conc 32.3 g/dL (31.5-36.5); Mean Corpuscular Volume 104 fL (80-100); Mean Platelet Volume 10.9 fL (9.1-12.4); NEUTROPHILS ABSOLUTE AUTO 8.06 K/mm3 (1.96-9.15); NEUTROPHILS PERCENT AUTO 70 % (41-73); Platelet Count 508 K/mm3 (150-400); RDW Coefficient Variation 20.1 % (11.7-14.2); RDW Standard Deviation 75.3 fL (35.1-46.3); Red Blood Cell Count 2.45 M/mm3 (3.80-5.20); White Blood Cell Count 11.51 K/mm3 (4.00-11.30)
[2021-04-18 05:10] LABS: Anion Gap 6 mmol/L (6-16); Blood Urea Nitrogen 10 mg/dL (8-24); Bun/Creatinine Ratio 21.4 (12.0-20.0); CO2, Blood 26 mmol/L (21-32); Chloride, Blood 109 mmol/L (98-108); Creatinine, Blood 0.47 mg/dL (0.40-1.00); Glomerular Filtration Rate >60 (60-); Glucose, Blood 113 mg/dL (70-99); Magnesium, Blood 1.6 mg/dL (1.6-2.4); Potassium, Blood 3.5 mmol/L (3.5-5.5); Sodium, Blood 141 mmol/L (136-145); Vancomycin, Random 17.2 ug/mL
--- NOTE | 2021-04-18 07:15 | NUR ---
Assumed care of pt at 0700. Report received from Ronda MARTINEZ. Pt A&O x 2. Answers questions, follows commands, verbalizes needs. Confused at times, however pt will have appropriate requests "grab my yellow socks, I'm cold". Pt on room air. SpO2 high 90s %. SR per monitor. BP stable. NG tube and rectal tube in place. Farnsworth patent and draining dark yellow urine.
--- NOTE | 2021-04-18 07:30 | NUR ---
PT SLEPT MINIMALLY THROUGHOUT SHIFT AND REQUIRED FREQUENT REPOSITIONING. SHE CONTINUES TO BE ALERT AND ORIENTED X2, FOLLOWS COMMANDS AND IS ABLE TO RELAY HER NEEDS WELL. VSS, NO ACUTE CHANGES EXPECT SHE IS FEBRILE, TMAX OF 100.4. SHE COMPLAINS OF HER SKIN ITCHING AND BEING DRY. LOTION APPLIED OFTEN. SHE ALSO COMPLAINS OF PAIN IN HER RIGHT EAR. MEDICATED WITH FENTANYL PER EMAR X2 THIS SHIFT. NG REMAINS PATENT WITH TUBE FEED AT GOAL. RECTAL TUBE PATENT WITH 300ML OUT, CONTINUES TO MOAN IN PAIN WITH MOVING TUBE, SKIN CARE DONE Q2H. MCCORMACK PATENT, DRAINING 225 YUNIEL URINE OUT THIS SHIFT. WILL REPORT TO ONCOMING SHIFT WHEN AVAILABLE.
--- NOTE | 2021-04-18 08:51 | NUR ---
Dr Jama in to see patient. Pt has passed ST eval. Plan to DC NG tube. Discussed decreasing urine output and pt's nasal congestion. Plan to start afrin. Discussed that pt is not sleeping at night, also not resting during the day. Plan to start melatonin tonight.
[2021-04-18 10:01] LABS: Source, Urine Foley catheter
[2021-04-18 10:10] LABS: Bilirubin, Urine Neg (Neg); Blood, Urine 5+ (Neg); Glucose Qualitative, Urine Neg (Neg); Ketones, Urine Neg (Neg); Leukocyte Esterase, Urine 3+ (Neg); Nitrite, Urine Neg (Neg); Protein, Urine 2+ (Neg); Specific Gravity, Urine 1.015 (1.003-1.022); Urobilinogen, Urine NORM (Normal)
[2021-04-18 10:21] LABS: Appearance, Urine Cloudy (Clear); Color, Urine Yellow (P-Yellow)
[2021-04-18 10:22] LABS: Bacteria Mod /hpf; Squamous Epithelial Cells Few /hpf (Few); White Blood Cells, Urine 25-50 /hpf (0-5); Yeast/Fungi Urine Mod /hpf
--- NOTE | 2021-04-18 10:24 | NUR ---
NG tube removed, pt tolerated well.
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
--- NOTE | 2021-04-18 17:06 | NUR ---
SUMMARY Pt is PCU status. Sitting up in chair for majority of shift. Tolerating chair well. Tolerating PO intake per orders well. Remains on room air. SR per monitor. BP stable. Rectal tube had 400 mL of output this shift. Only 140 mL urine output this shift. 250 mL bolus given.
--- NOTE | 2021-04-18 18:43 | NUR ---
Rectal tube removed as pt continues to report hemorrhoid pain and there has only been 50 mL output since bag was changed several hours ago. Prior to removal, pt was educated on removal. Pt verbalized understanding and verbalized consent for tube to be removed. Yudith KIM in room to witness and assist.
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
--- NOTE | 2021-04-19 02:40 | NUR ---
REPORT GIVEN TO FERNANDO LOZANO RN IN PCU FOR PATIENT TRANSFER. BERHANE AWAKENED AND TOLD ABOUT TRANSFER AND SHE MADE A REMARK ABOUT JUST GETTING TO SLEEP AND BEING AWAKENED TO BE MOVED. PT ACCOMPANIED BY MICHELLE ESTES; MICHELLE ESCOBEDO AND CPT ADRIA TO PCU 4.
[2021-04-19 04:17] LABS: BASOPHILS ABSOLUTE AUTO 0.07 K/mm3 (0.00-0.23); BASOPHILS PERCENT AUTO 1 % (0-2); EOSINOPHILS ABSOLUTE AUTO 0.39 K/mm3 (0.00-0.68); EOSINOPHILS PERCENT AUTO 3 % (0-6); Hematocrit 24.3 % (33.0-51.0); Hemoglobin 7.7 g/dL (11.5-16.0); IMMATURE GRAN ABSOLUTE AUTO 0.47 K/mm3 (0.00-0.10); IMMATURE GRAN PERCENT AUTO 4 % (0-1); LYMPHOCYTES ABSOLUTE AUTO 2.63 K/mm3 (0.84-5.20); LYMPHOCYTES PERCENT AUTO 20 % (21-46); MONOCYTES ABSOLUTE AUTO 0.93 K/mm3 (0.16-1.47); MONOCYTES PERCENT AUTO 7 % (4-13); Mean Corpuscular HGB 33.5 pg (26.0-34.0); Mean Corpuscular HGB Conc 31.7 g/dL (31.5-36.5); Mean Corpuscular Volume 106 fL (80-100); Mean Platelet Volume 10.8 fL (9.1-12.4); NEUTROPHILS ABSOLUTE AUTO 8.57 K/mm3 (1.96-9.15); NEUTROPHILS PERCENT AUTO 66 % (41-73); Platelet Count 549 K/mm3 (150-400); RDW Coefficient Variation 20.9 % (11.7-14.2); RDW Standard Deviation 78.3 fL (35.1-46.3); White Blood Cell Count 13.06 K/mm3 (4.00-11.30)
[2021-04-19 04:31] LABS: Anion Gap 4 mmol/L (6-16); Blood Urea Nitrogen 9 mg/dL (8-24); Bun/Creatinine Ratio 16.9 (12.0-20.0); CO2, Blood 26 mmol/L (21-32); Calcium, Blood 8.9 mg/dL (8.5-10.1); Chloride, Blood 112 mmol/L (98-108); Creatinine, Blood 0.53 mg/dL (0.40-1.00); Glomerular Filtration Rate >60 (60-); Glucose, Blood 91 mg/dL (70-99); Magnesium, Blood 1.5 mg/dL (1.6-2.4); Phosphorus, Blood 3.3 mg/dL (2.5-4.9); Potassium, Blood 3.8 mmol/L (3.5-5.5); Sodium, Blood 142 mmol/L (136-145); Vancomycin, Random 18.7 ug/mL
[2021-04-19 04:33] LABS: International Normalized Ratio 1.04; Prothrombin Time Results 10.9 Sec (9.7-11.5)
--- NOTE | 2021-04-19 06:36 | NUR ---
SHIFT SUMMARY ASSUMED CARE OF PT AT 0230. RECEIVED REPORT FROM JT MARTINEZ. PT IS ALERT BUT NOT ORIENTED. PT IS FORGETFUL AND MAKES ATTEMPTS TO GET OUT OF BED BUT IS TOO WEAK. PER REPORT, PT HAS ONLY SLEPT ABOUT 1HR IN A 24 HOUR PERIOD. PT HAS A MCCORMACK DRAINING WITH GRAVITY. PT HAS REDNESS ON HER BOTTOM, TURNED Q2.
--- NOTE | 2021-04-19 10:02 | NUR ---
Pt is alert and oriented to self and time, but disoriented to situation and place. Stated she was in [place]. CANE FEEDER eval and advanced diet. PT assessed pt while RN (myself was in the room). PT and I assisted pt to side of bed and she sat at side of bed for a few minutes. VSS on RA. Pt did have 2 BMs already after morning lactulose, will hold evening dose per Dr. Desouza.
--- NOTE | 2021-04-19 11:35 | NUR ---
Pt has had severl BMs. Pt only oriented to self and time on and off. Pt makes a lot of random comments not related to care in hospital. Mentioning names of people and random statements that don't correlate with questions asked on assessment. Pt appears still confused after extubated and is having some delusions. Will continue to monitor for imporvement in cognition. MD assessed pt at bedside with RN in the room.
--- NOTE | 2021-04-19 18:00 | NUR ---
Shift note: Pt is alert but only oriented to self and time, she said she was in the hospital, but thought she was in [place]. VSS on RA. Pt worked with PT in AM and was able to get up to side of the bed, but with 2 person assist (PT and myself). She tolerated sitting up at side of the bed for a few minutes and I was able to give her her morning medications sitting at side of bed. BELT POLISHER also worked with pt in AM and advanced the diet to mechanical soft and thins ok, but still not straws at this time and recommended meds whole in applesauce. Pt has tolerated diet well today. IV magnesium replacement given and PO potassium. Pt had several BMs today, lactulose should be held tonight per Dr. Desouza due to the goal is 1-2BM daily and pt has exceeded that. Banana flakes were given and BMs seem to have slowed down this evening. Farnsworth in place and draining dark urine. Pt remained in droplet and contact precautions due to MRSA in lungs. Pt family came in and met with an outside individual to discuss pt home situation. group program manager met with pts sisters, see note.
[2021-04-20 05:24] LABS: BASOPHILS ABSOLUTE AUTO 0.05 K/mm3 (0.00-0.23); BASOPHILS PERCENT AUTO 0 % (0-2); EOSINOPHILS ABSOLUTE AUTO 0.38 K/mm3 (0.00-0.68); EOSINOPHILS PERCENT AUTO 3 % (0-6); Hematocrit 25.1 % (33.0-51.0); Hemoglobin 7.9 g/dL (11.5-16.0); IMMATURE GRAN ABSOLUTE AUTO 0.43 K/mm3 (0.00-0.10); IMMATURE GRAN PERCENT AUTO 4 % (0-1); LYMPHOCYTES ABSOLUTE AUTO 2.19 K/mm3 (0.84-5.20); LYMPHOCYTES PERCENT AUTO 18 % (21-46); MONOCYTES ABSOLUTE AUTO 0.91 K/mm3 (0.16-1.47); MONOCYTES PERCENT AUTO 8 % (4-13); Mean Corpuscular HGB 33.6 pg (26.0-34.0); Mean Corpuscular HGB Conc 31.5 g/dL (31.5-36.5); Mean Corpuscular Volume 107 fL (80-100); Mean Platelet Volume 10.3 fL (9.1-12.4); NEUTROPHILS ABSOLUTE AUTO 8.11 K/mm3 (1.96-9.15); NEUTROPHILS PERCENT AUTO 67 % (41-73); Platelet Count 607 K/mm3 (150-400); RDW Coefficient Variation 20.9 % (11.7-14.2); RDW Standard Deviation 79.9 fL (35.1-46.3); Red Blood Cell Count 2.35 M/mm3 (3.80-5.20); White Blood Cell Count 12.07 K/mm3 (4.00-11.30)
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
[2021-04-20 05:52] LABS: Alanine Aminotransfer (ALT/SGP 44 U/L (12-78); Albumin, Blood 1.7 g/dL (3.4-5.0); Albumin/Globulin Ratio 0.4 (0.8-1.8); Alk Phos 117 U/L (50-136); Anion Gap 7 mmol/L (6-16); Aspartate Aminotrans (AST/SGOT 29 U/L (12-37); Bilirubin, Total 0.5 mg/dL (0.1-1.0); Blood Urea Nitrogen 8 mg/dL (8-24); Bun/Creatinine Ratio 15.4 (12.0-20.0); CO2, Blood 22 mmol/L (21-32); Calcium, Blood 8.9 mg/dL (8.5-10.1); Chloride, Blood 111 mmol/L (98-108); Creatinine, Blood 0.52 mg/dL (0.40-1.00); Globulin, Blood 4.3 g/dL (2.2-4.0); Glomerular Filtration Rate >60 (60-); Glucose, Blood 92 mg/dL (70-99); Sodium, Blood 140 mmol/L (136-145); Vancomycin, Random 18.1 ug/mL
--- NOTE | 2021-04-20 11:02 | NUR ---
ASSUME CARE THIS AM: PT ALERT TO SELF, FAMILY AND SURROUNDINGS, ANXIOUS THIS MORNING TO GET CATHETER REMOVED CALLED SISTER TO COME OVER STATING SHE'S SCARED TO GET THE CATHETER OUT, THIS RN WAS ABLE TO TALK TO SISTER ARIES ON THE PHONE WAS GIVEN AN UPDATE REGARDING PT'S STATUS. EASTON WAS DC'D PT TOLERATED WELL, LACTULOSE GIVEN HAD ONE LOOSE BM SINCE THIS MORNING PT TOLERATING THE USE OF BED SALAZAR WAS ABLE TO HELP MOVE AND TURN IN BED. PT WAS ABLE TO WORK WITH PT THIS MORNING STOOD UP WITH THE WALKER TO TRY TO TRANSFER TO C PT ONLY TOOK 2 SMALL STEPS THEN PT STARTED TO GET DIZZY. PT WAS ASSISTED BACK TO BED. ATE BREAKFAST WITH NO ISSUES. NO HALLUCINATIONS NOTED YET FOR THE SHIFT BUT PT HAS SOME CONFUSION SOMETIMES WILL TALK ABOUT NON RELATED TOPICS OTHER THAN THAT PT ANSWERS QUESTIONS APPROPRIATELY, FOLLOWS COMMANDS, PT NOW RESTING IN BED CALL LIGHTS IN REACH WILL MONITOR
--- NOTE | 2021-04-20 16:15 | NUR ---
PT TRANSFERRED TO 336 REPORT GIVEN TO LENIN MARTINEZ, PT'S SISTERS AT BEDSIDE DURING TRANSFER, ALL BELONGINGS SENT WITH THE PT
--- NOTE | 2021-04-20 16:48 | NUR ---
PATIENT ARRIVED TO MEDICAL FROM PCU UNIT, REPORT GIVEN FROM RAEANN RN. PATIENT AOX4, FAMILY AT BEDSIDE. PT/FAMILY ORIEINTED TO ROOM, INSTRUCTED OPHTHALMIC TECHNICIAN LIGHT USE, PT DEMONSTRATED HOW TO CALL NURSE. BED ALARMS ACTIVATED/AUDIBLE.
[2021-04-21] MEDS ORDERED: ALBU90OI INH (04:04)
[2021-04-21] MEDS ORDERED: MUPIROCIN1 G1 TOP (04:05)
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
--- NOTE | 2021-04-21 17:33 | NUR ---
SHIFT SUMMARY: PT A/O X 1-2 ON BEDREST AT THIS TIME. SHE HAS DONE WELL ASSISTING WITH ROLL CHANGES. SHE HAS HAD SEVERAL LIQUID BM'S TODAY AFTER RECEIVING LACTULOSE. SHE HAS HAD SEVERAL EPISODES OF URINATING WITH FREQUENCY AND URGENCY. URINE IS CLEAR YELLOW WITH NO FOUL ODOR. MCCORMACK WAS DC'D YESTERDAY. PT C/O BLADDER SPASMS AND OCCASIONALLY THINKS SHE IS DONE URINATING WHEN NO URINE WAS PRODUCED. POST VOID BLADDER SCAN THIS AM REVEALED BLADDER WITH 104 MLS. PT HAS HAD NO C/O PAIN. SHE DOES C/O ITCHY SKIN AND DOES HAVE AREA OF FLAT RED RASH AREA ON THIGHS AND ABD. APPLIED LOTION TO SKIN DUE TO DRY SKIN. NO SKIN BREAKDOWN ON BOTTOM NOTED, SHE DOES NOT HAVE ANY APPEARANCE OF BLOOD IN STOOLS FROM HEMORRHOIDS AT THIS TIME.
--- NOTE | 2021-04-22 15:07 | NUR ---
Met pt in bed resting ,pt. repots to be doing fine encouraged pt. and prayed for pt.
[2021-04-22 17:16] LABS: Source, Urine Clean Catch
[2021-04-22 17:20] LABS: Bilirubin, Urine Neg (Neg); Blood, Urine 4+ (Neg); Glucose Qualitative, Urine Neg (Neg); Ketones, Urine Neg (Neg); Leukocyte Esterase, Urine Neg (Neg); Nitrite, Urine Neg (Neg); Protein, Urine Neg (Neg); Specific Gravity, Urine 1.005 (1.003-1.022); Urobilinogen, Urine NORM (Normal)
[2021-04-22 17:32] LABS: Appearance, Urine Hazy (Clear); Color, Urine Pale Yellow (P-Yellow)
[2021-04-22 17:33] LABS: Bacteria Few /hpf; Squamous Epithelial Cells Rare /hpf (Few); White Blood Cells, Urine 0-2 /hpf (0-5)
[2021-04-22 17:34] LABS: Renal Epithelial Rare /hpf (0-Rare)
--- NOTE | 2021-04-22 18:53 | NUR ---
SHIFT SUMMARY: PT A/O X 3, CONFUSED ABOUT TIMELINES OF EVENTS. SHE HAS BEEN PLEASANT AND COOPERATIVE WITH CARES. SHE DID HAVE SEVERAL INCONTINENT EPISODES TODAY DUE TO URGENCY AND FREQUENCY. UA WAS OBTAINED TO RULE OUT UTI. SPECIMENT SENT AND WAS CULTURED. PT IS EATING SMALL AMOUNTS AT MEALS. SHE DID NOT RECEIVE LACTULOSE TODAY DUE TO SEVERAL EPISODES OF DIARRHEA YESTERDAY. SHE DID HAVE 3 SOFT BM'S TODAY. NASAL DECONGESTANT ORDERED PER PT REQUEST. NO OTHER CONCERNS THIS SHIFT.
--- NOTE | 2021-04-23 05:18 | NUR ---
SHIFT SUMMARY NO ACUTE CHANGES THIS SHIFT. AOX3-SELF, PLACE, SITUATION, FOLLOWS DIRECTIONS. FORGETFUL @TIMES. VSS. DENIES PAIN OR DYSPNEA. REPORTED NAUSEA, MEDICATED 1X c ZOFRAN & NO FURTHER ABD DISCOMFORT REPORTED. HAD MULTIPLE LOOSE UNFORMED BROWN BM THIS SHIFT. 2 ASSIST c PERSONAL CARE. AWAITING PLACEMENT. CALL LIGHT IN REACH, WILL MONITOR.
--- NOTE | 2021-04-23 14:25 | NUR ---
Pt. is in bed watching T.VSofi samaniego prayers for pt.
--- NOTE | 2021-04-23 18:28 | NUR ---
PATIENT A/OX3 THIS SHIFT, UP WITH 1-2 ASSIST TO BSC WITH GB. VOIDING WELL, BUT FREQUENTLY. POOR APPETITE, ENCOURGING PO INTAKE. SKIN INTACT. LACTULOSE HELD THHIS AM DUE TO DIARRHEA. NO ACUTE CHANGES THIS SHIFT, PATIENT IS AWAITING PLACEMENT AT SNF.
--- NOTE | 2021-04-24 04:29 | NUR ---
SHIFT SUMMARY: NO SIGNIFICANT EVENTS OVERNIGHT, PATIENT CALM AND COOPERITVE, EXPRESSES FATIGUE AND REQUESTED TO USE BEDPAN INSTEAD OF AMBULATING TO BSC OR BATHROOM. INCONTINENT EPISODES ON NOC WELL. PATIENT EXPRESS EAGERNESS TO DC. CORNELIO.
--- NOTE | 2021-04-24 18:26 | NUR ---
Patient was alert and orient, she remained on the call light throughout the shift requesting to either use the BSC or bedpan. Staff was in and out of the room solely for the bathroom request at least a dozen times. She also complained of pain and did recv prn Tylenol x2 on this shift. Patient worked with therapy and sat in the chair most of the shift. She was compliant with medications and had no other complaints. No discharge yet
--- NOTE | 2021-04-25 05:28 | NUR ---
Patient is alert and oriented x4, seldom forgetful of the situation. She is able to transfer to the commode with one person assist. No complains of pain. No signs of distress. Patient sometimes incontinent in urinating. Warm blanket provided. Call light within reach. Bed in lowest position.
--- NOTE | 2021-04-25 17:12 | NUR ---
SUMMARY PT RESTING QUIETLY IN BED, WAKES EASILY, PT UP TO THE CHAIR SEVERAL TIMES TODAY, UP TO THE COMMODE MANY TIMES WELL, PT'S SISTER IN TO VISIT, CARE MANAGEMENT IN TO VISIT, PLAN TO GO TO SNF AT [facility] ONCE A BED IS AVAILABLE, PT WORKED WITH PT/OT TODAY, MED PER EMAR FOR C/O BACK PAIN, VSS, WILL CONT TO MONITOR
--- NOTE | 2021-04-26 05:26 | NUR ---
Pt alert and oriented x4, one person assist to the commode. Patient in no sign of distress. No complains of pain. Patient is complaining of having a hard time sleeping and that melatonin does not work. Patient received ativan PO once yesterday and states it really works. Called MD for ativan PO once. Debby is now sleeping. She calls appropriately for her diapers to be change. Snacks given. Call light within reach.
--- NOTE | 2021-04-26 17:17 | NUR ---
SUMMARY PT SITTING UP IN BED VISITING WITH HER SISTER, PT HAS BEEN PLEASANT AND COOPERATIVE WITH CARE T/O THE DAY, UP FREQUENTLY TO THE COMMODE, 1P ASSIST, MED PER EMAR FOR DIARRHEA AND BACK PAIN, PLAN TO DC TO SNF ONCE A BED IS AVAILABLE, VSS, WILL CONT TO MONITOR
--- NOTE | 2021-04-27 06:19 | NUR ---
PT A/O X 3, FORGETFUL AT TIMES, PT HAD SOME ANXIETY AT BEGINNING OF SHIFT, MED PER MAR. PT UP FREQUENTLY TO BSC TO URINATE, ALSO HAD SEVERAL LOOSE STOOLS, MED PER MAR. VSS, UP WITH 1 ASSIST, ANTICIPATE D/C WHEN BED AVAILABLE AT [facility].
--- NOTE | 2021-04-27 09:17 | NUR ---
pt up to bsc with assist of discharge planner, pt is irritable, a/ox3, but has some periodic confusion, and makes bizzare statements, such as she is coughing up blood because of her kids at home, complains about food, etc,,, is cooperative with care, states she had loose stools this am and didn't want lactulose, understands she is waiting to go to snf, lungs are course t/o but clears with cough, cough is productive with pink sputum, asking for inhaler, states the nurse has been giving her the inhaler, explained that RT does that, hrr, no edema noted, ppp+1, cap refill <3sec, vs stable, afebrile, iv is picc line to apoorva, site is clear and patent, btx4, abd flat soft nontender, voids via bsc, skin c/w/d, maew, weak, mariama, call light in reach.
--- NOTE | 2021-04-27 11:23 | NUR ---
pt recieving PT at this time.
--- NOTE | 2021-04-27 18:37 | NUR ---
pt has been irritable today, her sister came in and became angry she didn't get to see the nurse, but was asking for the maintenance superintendent. no further changes in pt. awaiting snf. call light in reach.
[2021-04-28 04:51] LABS: Hematocrit 30.3 % (33.0-51.0); Hemoglobin 9.7 g/dL (11.5-16.0); Mean Corpuscular HGB 33.1 pg (26.0-34.0); Mean Corpuscular Volume 103 fL (80-100); Platelet Count 480 K/mm3 (150-400); RDW Standard Deviation 69.2 fL (35.1-46.3); Red Blood Cell Count 2.93 M/mm3 (3.80-5.20)
[2021-04-28 05:11] LABS: Alanine Aminotransfer (ALT/SGP 38 U/L (12-78); Albumin, Blood 2.3 g/dL (3.4-5.0); Albumin/Globulin Ratio 0.6 (0.8-1.8); Alk Phos 111 U/L (50-136); Anion Gap 6 mmol/L (6-16); Aspartate Aminotrans (AST/SGOT 37 U/L (12-37); Bilirubin, Total 0.5 mg/dL (0.1-1.0); Blood Urea Nitrogen 6 mg/dL (8-24); Bun/Creatinine Ratio 10.8 (12.0-20.0); CO2, Blood 23 mmol/L (21-32); Calcium, Blood 9.3 mg/dL (8.5-10.1); Chloride, Blood 112 mmol/L (98-108); Creatinine, Blood 0.55 mg/dL (0.40-1.00); Globulin, Blood 3.9 g/dL (2.2-4.0); Glomerular Filtration Rate >60 (60-); Glucose, Blood 74 mg/dL (70-99); Potassium, Blood 3.1 mmol/L (3.5-5.5); Sodium, Blood 141 mmol/L (136-145); Total Protein, Blood 6.2 g/dL (6.4-8.2)
--- NOTE | 2021-04-28 06:24 | NUR ---
SHIFT SUMMARY PATIENT ALERT AND ORIENTED X3. HAD NO COMPLAINTS OF PAIN OR SHORTNESS OF BREATH. NO ACUTE ISSUES NOTED OVERNIGHT.BED IN LOWEST POSITION WITH WHEELS LOCKED AND ALARM ON. CALL LIGHT WITHIN REACH. REPORT GIVEN TO ONCOMING RN.
--- NOTE | 2021-04-28 16:25 | NUR ---
SHIFT SUMMARY: PATIENT ALERT AND ORIENTED X 3, ABLE TO VERBALIZE NEEDS. 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 COOPERATIVE WITH CARE. POTASSIUM LEVEL LOW 3.1 THIS MORNING, POTASSIUM REPLACEMENT ORDERED. PRN MEDICATION GIVEN FOR DIARREA AND LOWER BACK PAIN AND EFFECTIVE. PATIENT USE CALL LIGHT FOR ASSITS.
--- NOTE | 2021-04-29 06:46 | NUR ---
70 year old PT who was in ICU continues on room air & VSS. She has PRN melatonin at HS & PRN MDI with spacer & assist . She calls for assist appropriatly. Up to BSC with min assist to void.
[2021-04-29 09:19] LABS: Anion Gap 5 mmol/L (6-16); Blood Urea Nitrogen 5 mg/dL (8-24); Bun/Creatinine Ratio 7.7 (12.0-20.0); CO2, Blood 21 mmol/L (21-32); Calcium, Blood 8.9 mg/dL (8.5-10.1); Chloride, Blood 114 mmol/L (98-108); Creatinine, Blood 0.65 mg/dL (0.40-1.00); Glomerular Filtration Rate >60 (60-); Glucose, Blood 82 mg/dL (70-99); Magnesium, Blood 1.6 mg/dL (1.6-2.4); Potassium, Blood 3.4 mmol/L (3.5-5.5); Sodium, Blood 140 mmol/L (136-145)
--- NOTE | 2021-04-30 07:05 | NUR ---
70 year old PT admitted 04/03/21 with acute hepatic encephalopathy continues weak but stable. PT needs assist to get off bedside commode> Gen weakness, lives alone. Appropriate affect, able to make needs known. Sister here from out of town, caring for PT's pet cat. Due to weakness PT waiting for SNF placement. Chronic diarrhea, lactose intolerance. Immodium x 1 for co loose stools.
[2021-05-01 05:54] LABS: Anion Gap 7 mmol/L (6-16); Blood Urea Nitrogen 9 mg/dL (8-24); Bun/Creatinine Ratio 16.2 (12.0-20.0); CO2, Blood 21 mmol/L (21-32); Calcium, Blood 9.1 mg/dL (8.5-10.1); Chloride, Blood 111 mmol/L (98-108); Creatinine, Blood 0.55 mg/dL (0.40-1.00); Glomerular Filtration Rate >60 (60-); Glucose, Blood 80 mg/dL (70-99); Magnesium, Blood 1.5 mg/dL (1.6-2.4); Sodium, Blood 139 mmol/L (136-145)
--- NOTE | 2021-05-01 06:28 | NUR ---
SHIFT SUMMARY: PATIENT IS A&0X4, VSS, NO REPORTS OF PAIN. PATIENT REQUESTED MELATONIN AND IMMODIUM AT HS. PATIENT DENIED DIARRHEA, "YOU DON'T WANT ME TO HAVE A BM DURNING THE NIGHT, IT WILL BE A MESS". EDUCATION IS GIVEN ON INDICATIONS TO TAKE IMMODIUM IS TO SLOW DIARRHEA NOT PREVENT BM'S DURING SLEEP. PATIENT WAS GIVEN MELATONIN WITH GOOD EFFECT.
[2021-05-01] MEDS ORDERED: ZENPEP DR 20,01 EACH PO (15:12)
[2021-05-01] MEDS ORDERED: MELATONIN5 M1 PO (15:13)
[2021-05-01] MEDS ORDERED: LOPE2C PO (15:13)
[2021-05-01] MEDS ORDERED: DAILY-VITE1 EAC1 PO (15:14)
[2021-05-01] MEDS ORDERED: B-1100 M1 PO (15:15)
--- NOTE | 2021-05-01 17:23 | NUR ---
DISCHARGE SUMMARY DISCHARGE INSTRUCTIONS REVIEWED WITH PATIENT AND SISTER AT BEDSIDE. INSTRUCTED PT TO MAKE AN APPOINTMENT TO FOLLOW UP WITH PCP. ALL QUESTIONS ANSWERED. PT WHEELED OUT BY WHEELCHAIR BY PRIMARY RN
--- NOTE | 2021-05-02 11:15 | NUR ---
Received referral from nurse healthcare network pricing consultant (Carola Garcia) on 05/01/2021. Patient discharged 05/01/2021 with orders for home health and elected [facility]. Patient was admitted to [facility] on 04/03/2021 due to acute hepatic encephalopathy. Telephone call placed to patient's phone number on demographic sheet today- 05/02/2021 at 1110. Spoke with patient's sister (Sondra Godwin) regarding home health services. Per patient's sister they are currently in the process of changing PCPs. As such patient will need to establish care at the new PCPs office prior to home health being initiated. Patient's sister verbalized understanding. No further interventions Louisa Butler Referral Liaison
== END 2021-05-01 17:05 | disposition home health service (06) | DRG 870 ==
LOC: ER 08:29 → ICUW 11:13 → MEDS 11:13 → ICUW 12:51 → PCU 04-19 02:31 → MEDS 04-20 15:55
PROVIDERS: Emergency Medicine; Family Medicine; Hospitalist; Internal Medicine; Internal Medicine Critical Care Medicine; Pharmacist; ADMIT Internal Medicine
PROC: 3E03329 Introduction of Other Anti-infective into Peripheral Vein, Percutaneous Approach (ICD-10-PCS; principal; 2021-04-03)
PROC: 5A1955Z Respiratory Ventilation, Greater than 96 Consecutive Hours (ICD-10-PCS; 2021-04-08)
PROC: 3E033XZ Introduction of Vasopressor into Peripheral Vein, Percutaneous Approach (ICD-10-PCS; 2021-04-08)
PROC: 0BH17EZ Insertion of Endotracheal Airway into Trachea, Via Natural or Artificial Opening (ICD-10-PCS; 2021-04-08)
PROC: HZ2ZZZZ Detoxification Services for Substance Abuse Treatment (ICD-10-PCS; 2021-04-08)
PROC: 02H633Z Insertion of Infusion Device into Right Atrium, Percutaneous Approach (ICD-10-PCS; 2021-04-09)
DX: A41.9 Sepsis, unspecified organism (principal); K72.00 Acute and subacute hepatic failure without coma; G92.8 Other toxic encephalopathy; J69.0 Pneumonitis due to inhalation of food and vomit; J15.212 Pneumonia due to Methicillin resistant Staphylococcus aureus; R65.21 Severe sepsis with septic shock; J96.01 Acute respiratory failure with hypoxia; E87.4 Mixed disorder of acid-base balance; N17.9 Acute kidney failure, unspecified; E87.0 Hyperosmolality and hypernatremia; N39.0 Urinary tract infection, site not specified; J90 Pleural effusion, not elsewhere classified; R64 Cachexia; K86.0 Alcohol-induced chronic pancreatitis; K90.9 Intestinal malabsorption, unspecified; D62 Acute posthemorrhagic anemia; I10 Essential (primary) hypertension; K70.30 Alcoholic cirrhosis of liver without ascites; E83.42 Hypomagnesemia; E83.39 Other disorders of phosphorus metabolism; B37.2 Candidiasis of skin and nail; B37.3 Candidiasis of vulva and vagina; Z20.822 Contact with and (suspected) exposure to COVID-19; K21.9 Gastro-esophageal reflux disease without esophagitis; Z78.1 Physical restraint status; Z68.23 Body mass index [BMI] 23.0-23.9, adult; E86.0 Dehydration; E87.6 Hypokalemia; D63.1 Anemia in chronic kidney disease; R31.9 Hematuria, unspecified; T68.XXXA Hypothermia, initial encounter; Z96.652 Presence of left artificial knee joint; Z90.49 Acquired absence of other specified parts of digestive tract; Z90.710 Acquired absence of both cervix and uterus; Z90.89 Acquired absence of other organs; Z98.890 Other specified postprocedural states; Z88.2 Allergy status to sulfonamides; Z88.8 Allergy status to other drugs, medicaments and biological substances; Z79.899 Other long term (current) drug therapy
CPT/HCPCS: 0097U; 0241U; 31500; 36415; 36430; 36569; 36600; 51702; 70450; 71045; 74018; 74176; 76700; 80048; 80053; 80069; 80202; 81001; 82010; 82140; 82330; 82533; 82550; 82553; 82607; 82728; 82746; 82803; 82947; 83540; 83550; 83605; 83690; 83735; 83930; 84100; 84132; 84295; 84439; 84443; 84478; 85014; 85018; 85025; 85027; 85610; 85730; 86850; 86900; 86901; 86923; 87040; 87070; 87077; 87086; 87147; 87186; 87205; 92526; 92610; 93005; 93010; 94002; 94003; 94640; 94664; 94667; 94760; 96365; 96375; 97110; 97112; 97116; 97163; 97164; 97167; 97168; 97530; 97535; 99285-25; A9270; C1751; C9113; G0480; J0295; J0456; J0696; J1644; J1650; J1815; J1940; J2310; J2405; J2543; J2704; J3010; J3370; J3411; J3475; J3480; J7030; J7050; J7060; J7070; J7120; P9016; P9046

== ENCOUNTER → 2021-08-23 | Outpatient (CLI) | payer OTHER ==
[~2021-08-23] MED LIST changes: +ALBU90OI INH; +B-1100 M1 PO; +DAILY-VITE1 EAC1 PO; +FUROSEMIDE20 MG PO; +LOPE2C PO; +MELATONIN5 M1 PO; +MUPIROCIN1 G1 TOP; +ZENPEP DR 20,01 EACH PO
[2021-08-23 13:41] LABS: Source, Urine Clean Catch
[2021-08-23 18:06] LABS: Appearance, Urine Hazy (Clear); Bilirubin, Urine Neg (Neg); Blood, Urine 4+ (Neg); Color, Urine Yellow (P-Yellow); Glucose Qualitative, Urine Neg (Neg); Ketones, Urine Neg (Neg); Leukocyte Esterase, Urine 3+ (Neg); Nitrite, Urine Neg (Neg); Protein, Urine 1+ (Neg); Urobilinogen, Urine NORM (Normal)
[2021-08-23 18:27] LABS: White Blood Cells, Urine TNTC /hpf (0-5)
[2021-08-23 18:28] LABS: Squamous Epithelial Cells Rare /hpf (Few)
[2021-08-23 18:29] LABS: Amorphous Light (0-Heavy); Bacteria Mod /hpf; Calcium Oxalate Crystals Many /hpf; Mucus Light (0-Heavy); Yeast/Fungi Urine Mod /hpf
== END ==
LOC: LAB SHORT 13:10 → LAB 13:10
PROVIDERS: Anesthesiology Addiction Medicine
DX: K70.30 Alcoholic cirrhosis of liver without ascites (principal); I10 Essential (primary) hypertension; R19.7 Diarrhea, unspecified
CPT/HCPCS: 81001; 87086

== ENCOUNTER 2023-08-19 08:33 | Day surgery (SDC) | payer OTHER ==
[2023-08-19] VITALS (16 sets, daily range): BP systolic 117–149; BP diastolic 65–87
[~2023-08-19] VITALS: Ht 139.7 cm; Wt 62.9 kg
[~2023-08-19 08:33] MED LIST changes: +AMLO5 PO; +AZO CRANBERRY PO; +FISH OIL PO; +LORA10ER PO; +LOSA50 PO; +OMEP20ER PO; +POTASSIUM PO; +VITAMIN B12500 MCG PO; +VITAMIN D325 MC3 PO; +Vitamin D1000 UNI1 PO; +ZINC15 PO; +[UNRECOGNIZED DRUG - CODE] PO
[2023-08-19] MEDS ORDERED: Acetaminophen 500 MG Tab PO SCH ×2 (09:00→16:00)
[2023-08-19] MEDS ORDERED: Chlorhexidine Mouth Care 15 ML UDC MT SCH (09:00)
[2023-08-19] MEDS ORDERED: Vancomycin HCL 1,000 MG in NS 250 ML IV SCH (09:00)
[2023-08-19] MEDS ORDERED: Lactated Ringer's 1,000 ML IV SCH ×2 (09:00→10:20)
[2023-08-19] MEDS ORDERED: OxyCODONE HCL 10 MG TABCR PO SCH (09:00)
[2023-08-19] MEDS ORDERED: Ropivacaine 0.5% HCl/Pf 123.125 MG,EPINEPHrine HCL 0.25 MG,Ketorolac Tromethamine 15 MG... INFIL SCH (09:00)
[2023-08-19] MEDS ORDERED: CeFAZolin Sodium 2,000 MG in NS 100 ML IV SCH ×2 (09:00→20:00)
[2023-08-19] MEDS ORDERED: Tranexamic Acid 100 ML IV SCH (09:02)
--- NOTE | 2023-08-19 09:35 | NUR ---
Ambulatory in Day Surgery History, Chart, Medications and Allergies reviewed before start of procedure. Pre-Op teaching done. Pt verbalizes understanding.
[2023-08-19] MEDS ORDERED: FLUTICASONE-SA1 EAC1 INH (09:52)
[2023-08-19] MEDS ORDERED: ALBU90OI INH (09:53)
[2023-08-19] MEDS ORDERED: Promethazine HCl 25 MG Tab PO PRN (10:15)
[2023-08-19] MEDS ORDERED: OxyCODONE HCL 5 MG TAB PO PRN ×2 (10:15)
[2023-08-19] MEDS ORDERED: HYDROmorphone HCl/Pf 1MG SYR IV PRN (10:20)
[2023-08-19] MEDS ORDERED: Bisacodyl 10 MG Supp PR PRN (10:20)
[2023-08-19] MEDS ORDERED: DiphenhydrAMINE HCL 25 MG Cap PO PRN (10:20)
[2023-08-19] MEDS ORDERED: Metoclopramide HCl 5MG / ML 2ML Vial IV PRN (10:25)
[2023-08-19] MEDS ORDERED: Magnesium Hydroxide Conc 10 ML UDC PO PRN (10:25)
[2023-08-19] MEDS ORDERED: Ondansetron HCl 2 MG / ML 2ML Vial IV PRN (10:25)
[2023-08-19] MEDS ORDERED: Vancomycin HCl 1000 MG ADDvantage ONE (10:35)
[2023-08-19] MEDS ORDERED: ePHEDrine Sulfate 50 MG/ML 1ML Injection ONE (11:03)
[2023-08-19] MEDS ORDERED: Phenylephrine HCl 100 MCG/ML-NS 10MLSYR (1MG/10ML) ONE ×3 (11:05→12:32)
[2023-08-19] MEDS ORDERED: Dexamethasone Sod Phos 10 MG/ML 1ML VIAL ONE (11:06)
[2023-08-19] MEDS ORDERED: Albuterol 2.5 MG/3 ML VIAL INH PRN (11:30)
[2023-08-19] MEDS ORDERED: FentaNYL Citrate 50 MCG/ML 2 ML Injection IV PRN ×3 (11:30)
[2023-08-19] MEDS ORDERED: Ketorolac Tromethamine 15mg Vial IV SCH (12:00)
[2023-08-19] MEDS ORDERED: Ondansetron HCl 2 MG / ML 2ML Vial ONE (12:13)
[2023-08-19] MEDS ORDERED: Mometasone/Formoterol MDI 200/5 mcg 13 GM INH SCH (12:40)
[2023-08-19] MEDS ORDERED: Albuterol HFA200 ACT/6.7 GM INH INH PRN (12:40)
[2023-08-19] MEDS ORDERED: POTA10T PO (13:34)
[2023-08-19] MEDS ORDERED: OXYC5 PO (13:35)
[2023-08-19] MEDS ORDERED: LINE600 PO (13:36)
[2023-08-19] MEDS ORDERED: ASPI81CH PO (13:36)
[2023-08-19] MEDS ORDERED: ZINC220 PO (13:36)
[2023-08-19] MEDS ORDERED: PROM25 PO (13:37)
[2023-08-19] MEDS ORDERED: FentaNYL Citrate 50 MCG/ML 2 ML Injection ONE (13:46)
--- NOTE | 2023-08-19 15:23 | NUR ---
PHYSICAL THERAPY IN TO EVAL PATIENT
--- NOTE | 2023-08-19 18:01 | NUR ---
Spiritual Care Visit. Pt. is sitting in a chair and her sister is present at bedide. Pt. welcomes my visit. Facilitate a life review and condiser matters of tasha, family, and fun. Pt. displays evidence of a pleasant disposition. Prayed with the Pt. Pt. vebralized gratitude for the spiritual care visit.
--- NOTE | 2023-08-19 18:06 | NUR ---
SHIFT SUMMARY S/P L TKA, PRESSURE DRESSING CDI, A&OX4, VSS/RA, CRISTO PO, VOIDING, PT EVAL'D AMB SBA FWW/GB, PAIN MANAGED, IVF & ABX PER EMAR. WILL REPORT TO ONCOMING NOC MICHELLE.
[2023-08-19] MEDS ORDERED: Docusate Sodium 100 MG Cap PO SCH (21:00)
[2023-08-19] MEDS ORDERED: Vancomycin HCL 1,000 MG in NS 250 ML IV ONE (22:00)
[2023-08-20 04:24] VITALS: BP 126/77
--- NOTE | 2023-08-20 04:31 | NUR ---
SHIFT SUMMARY POD 1 L TKA. NO ACUTE CHANGES OVERNIGHT. VSS. TOLERATING ORALS. AMBULATES USING FWW c GB & SBA. VOIDING INDEPENDENTLY, NO BM. PRESSURE DRESSING C/D/I. PT REPORTS PAIN TOLERABLE, MEDICATED PER EMAR; PT DENIES WANT TO USE POLAR PACK BECAUSE IT IS "TOO COLD". ANTICIPATED DISCHARGE LATER TODAY. CALL LIGHT IN REACH, BED IN LOWEST POSITION, WILL REPORT TO DAY RN.
[2023-08-20 05:02] LABS: BASOPHILS ABSOLUTE AUTO 0.02 K/mm3 (0.00-0.23); BASOPHILS PERCENT AUTO 0 % (0-2); EOSINOPHILS PERCENT AUTO 0 % (0-6); Hemoglobin 9.9 g/dL (11.5-16.0); IMMATURE GRAN ABSOLUTE AUTO 0.07 K/mm3 (0.00-0.10); IMMATURE GRAN PERCENT AUTO 1 % (0-1); LYMPHOCYTES ABSOLUTE AUTO 0.83 K/mm3 (0.84-5.20); LYMPHOCYTES PERCENT AUTO 6 % (21-46); MONOCYTES ABSOLUTE AUTO 0.62 K/mm3 (0.16-1.47); MONOCYTES PERCENT AUTO 5 % (4-13); Mean Corpuscular HGB 30.7 pg (26.0-34.0); Mean Corpuscular HGB Conc 31.9 g/dL (31.5-36.5); Mean Corpuscular Volume 96 fL (80-100); Mean Platelet Volume 9.8 fL (9.1-12.4); NEUTROPHILS ABSOLUTE AUTO 11.72 K/mm3 (1.96-9.15); NEUTROPHILS PERCENT AUTO 88 % (41-73); Platelet Count 279 K/mm3 (150-400); RDW Coefficient Variation 12.8 % (11.7-14.2); RDW Standard Deviation 45.9 fL (35.1-46.3); Red Blood Cell Count 3.22 M/mm3 (3.80-5.20); White Blood Cell Count 13.26 K/mm3 (4.00-11.30)
[2023-08-20 05:41] LABS: Bun/Creatinine Ratio 21.9 (12.0-20.0); Calcium, Blood 8.8 mg/dL (8.5-10.1); Creatinine, Blood 1.14 mg/dL (0.40-1.00); Magnesium, Blood 2.2 mg/dL (1.6-2.4); Potassium, Blood 4.7 mmol/L (3.5-5.5)
[2023-08-20] MEDS ORDERED: Omeprazole 20 MG CapCR PO SCH (06:00)
[2023-08-20 07:03] VITALS: BP 115/79
[2023-08-20] MEDS ORDERED: Zinc Sulfate 220 MG Cap (Provides 50MG) PO SCH (09:00)
[2023-08-20] MEDS ORDERED: AmLODIPine Besylate 5 MG Tab PO SCH (09:00)
[2023-08-20] MEDS ORDERED: Cyanocobalamin 500 MCG Tab PO SCH (09:00)
[2023-08-20] MEDS ORDERED: Linezolid 600 MG Tab PO SCH (09:00)
[2023-08-20] MEDS ORDERED: Potassium Chloride 10 Meq Tablet SA PO SCH (09:00)
[2023-08-20] MEDS ORDERED: Ascorbic Acid 1000 MG Tab PO SCH (09:00)
[2023-08-20] MEDS ORDERED: Loratadine 10 MG Tab PO SCH (09:00)
[2023-08-20] MEDS ORDERED: Aspirin 81 MG Chew PO SCH (09:00)
[2023-08-20] MEDS ORDERED: Cholecalciferol 1000 Unit Tablet (=25MCG) PO SCH (09:00)
[2023-08-20] MEDS ORDERED: Losartan Potassium 50 MG Tab PO SCH (09:00)
--- NOTE | 2023-08-20 09:53 | NUR ---
Pt. is awake in a recliner awaiting her ride for discharge. Pt. displayed evidence of being alert and engaging. Pt. verbalized her gratitude for the spiritual care support yesterday. Facilitated some discussion of her plans going home for discharge. Pt. verablized her convictions regarding tasha and belief. Prayed with Pt. Pt. verbalized gratitude for the spiritual care visits.
--- NOTE | 2023-08-20 10:11 | NUR ---
DISCHARGE SUMMARY PT A&OX4, VSS/RA, CRISTO PO, VOIDING, AMB SBA FWW/UP TO CHAIR ALL AM/DRESSED SELF, PAIN MANAGED, IV DC'D. DC INS PROVIDED TO PT AND SISTER; REP UNDERSTANDING THOSE INSTRUCTIONS. LEFT FLOOR VIA WC WITH SUPERVISOR CLAM BED TO GO HOME WITH SISTER WITH ALL PERSONAL POSSESSIONS INCLUDING 2 WALKERS, EXTRA AQUACEL DRESSINGS, DC INS; REP HAVING MEDS FILLED AND AT HOME.
== END 2023-08-20 11:04 | disposition home or self-care (01) ==
LOC: ORSCMMR 08:33 → ORD 11:00 → SURS 14:11 → ORSCMMR 08-20 11:04
PROVIDERS: Orthopaedic Surgery
PROC: 0SRC0J9 Replacement of Right Knee Joint with Synthetic Substitute, Cemented, Open Approach (ICD-10-PCS; principal; 2023-08-19 11:00)
DX: M17.11 Unilateral primary osteoarthritis, right knee (principal); I10 Essential (primary) hypertension; J45.909 Unspecified asthma, uncomplicated; K70.30 Alcoholic cirrhosis of liver without ascites; Z79.899 Other long term (current) drug therapy
CPT/HCPCS: 36415; 73560-RT; 80048; 83735; 85025; 94640; 94664; 94760; 97110; 97116; 97162; 97530; A9270; C1713; C1776; J0171; J0690; J0735; J1100; J1885; J2371; J2405; J2795; J3010; J3370; J7050; J7120

== ENCOUNTER 2023-08-21 12:44 | Emergency (ER) | payer OTHER ==
[~2023-08-21] VITALS: Ht 152.4 cm; Wt 62.6 kg
[~2023-08-21 12:44] MED LIST changes: +ASPI81CH PO; +FLUTICASONE-SA1 EAC1 INH; +LINE600 PO; +POTA10T PO; +PROM25 PO; +ZINC220 PO
[2023-08-21] MEDS ORDERED: Ondansetron HCl 2 MG / ML 2ML Vial IV ONE (13:05)
[2023-08-21] MEDS ORDERED: HYDROmorphone HCl/Pf 1MG SYR IV ONE (13:05)
[2023-08-21 13:18] LABS: BASOPHILS ABSOLUTE AUTO 0.07 K/mm3 (0.00-0.23); BASOPHILS PERCENT AUTO 1 % (0-2); EOSINOPHILS ABSOLUTE AUTO 0.22 K/mm3 (0.00-0.68); EOSINOPHILS PERCENT AUTO 2 % (0-6); Hematocrit 26.2 % (33.0-51.0); Hemoglobin 8.2 g/dL (11.5-16.0); IMMATURE GRAN ABSOLUTE AUTO 0.04 K/mm3 (0.00-0.10); IMMATURE GRAN PERCENT AUTO 0 % (0-1); LYMPHOCYTES ABSOLUTE AUTO 1.26 K/mm3 (0.84-5.20); LYMPHOCYTES PERCENT AUTO 11 % (21-46); MONOCYTES ABSOLUTE AUTO 1.18 K/mm3 (0.16-1.47); MONOCYTES PERCENT AUTO 11 % (4-13); Mean Corpuscular HGB 30.7 pg (26.0-34.0); Mean Corpuscular HGB Conc 31.3 g/dL (31.5-36.5); Mean Corpuscular Volume 98 fL (80-100); Mean Platelet Volume 10.1 fL (9.1-12.4); NEUTROPHILS PERCENT AUTO 75 % (41-73); Platelet Count 241 K/mm3 (150-400); RDW Coefficient Variation 13.3 % (11.7-14.2); Red Blood Cell Count 2.67 M/mm3 (3.80-5.20); White Blood Cell Count 11.27 K/mm3 (4.00-11.30)
[2023-08-21 13:41] LABS: Albumin, Blood 3.2 g/dL (3.4-5.0); Bilirubin, Total 0.3 mg/dL (0.1-1.0); Bun/Creatinine Ratio 25.4 (12.0-20.0); Creatinine, Blood 1.18 mg/dL (0.40-1.00); Globulin, Blood 3.3 g/dL (2.2-4.0); Potassium, Blood 4.2 mmol/L (3.5-5.5); Total Protein, Blood 6.5 g/dL (6.4-8.2)
[2023-08-21] MEDS ORDERED: Pantoprazole Sodium 40 MG Injection IV ONE (13:55)
--- NOTE | 2023-08-21 15:23 | NUR ---
Pt. is awake in her ED bed when she welcomes my visit. Pt. is known to this dry house tender from a recent admission. Facilitated an update since she was last discharged. Listened with empathy and a calming presence. Pt. displayed evidence of engagement and clear thinking. Pt. verbalized that she understood she would be sent to [place] for an endoscopy, and then return to [place] for ion-going care. Pt. displayed evidence of accepting this course of treatment, but is unsettled by the potential cost. Prayed with the Pt. Pt. verbalized gratitude for the spiritual care visit.
[2023-08-21 15:45] VITALS: BP 123/64
== END 2023-08-21 17:15 | disposition short-term general hospital (02) ==
LOC: ER 12:44
PROVIDERS: Emergency Medicine
DX: K92.2 Gastrointestinal hemorrhage, unspecified (principal); Z88.8 Allergy status to other drugs, medicaments and biological substances; Z88.1 Allergy status to other antibiotic agents; Z88.2 Allergy status to sulfonamides; Z79.899 Other long term (current) drug therapy; Z79.82 Long term (current) use of aspirin; I10 Essential (primary) hypertension; K21.9 Gastro-esophageal reflux disease without esophagitis
CPT/HCPCS: 80053; 82272; 85025; 93005; 93010; 96374; 96375; 99285-25; C9113; J1170; J2405